=== PATIENT | male | born 1950 | race African-American/Black ===

== ENCOUNTER 2016-08-07 06:32 | Emergency (ER) | payer MEDICARE, MEDICAID ==
[2016-08-07 07:57] LABS: ABSOLUTE BASOPHILS # (AUTO) 0.2 10^3/uL (0.0-0.2); ABSOLUTE EOSINOPHILS # (AUTO) 0.3 10^3/uL (0.0-0.6); ABSOLUTE LYMPHOCYTES (AUTO) 1.2 10^3/uL (0.5-4.7); ABSOLUTE MONOCYTES (AUTO) 0.5 10^3/uL (0.1-1.4); ABSOLUTE NEUT (AUTO) 3.4 10^3/uL (1.7-8.2); BASOPHILS % (AUTO) 3.9 % (0-2); EOSINOPHILS % (AUTO) 4.6 % (0-6); HEMATOCRIT 35.2 % (37.9-51.0); HEMOGLOBIN 11.6 g/dL (13.5-17.0); HGB HCT DIFFERENCE -0.4; LYMPHOCYTES % (AUTO) 21.9 % (13-45); MEAN CORPUSCULAR HEMOGLOBIN 29.9 pg (27.0-33.4); MEAN CORPUSCULAR HGB CONC 32.8 g/dL (32.0-36.0); MEAN CORPUSCULAR VOLUME 91 fl (80-97); RED BLOOD COUNT 3.87 10^6/uL (4.35-5.55); RED CELL DISTRIBUTION WIDTH 15.3 % (11.5-14.0); SEGMENTED NEUTROPHILS % (AUTO) 60.6 % (42-78); WHITE BLOOD COUNT 5.6 10^3/uL (4.0-10.5)
--- NOTE | 2016-08-07 08:04 | EKG REPORT ---
SEVERITY:- ABNORMAL ECG - SINUS RHYTHM LEFT ATRIAL ABNORMALITY IVCD, CONSIDER ATYPICAL LBBB INFERIOR Q WAVES, POSSIBLY DUE OLD INFERIOR [place] : Confirmed by: Gilbert Bradshaw MD 07-Aug-2016 08:04:13
[2016-08-07 08:09] LABS: ALANINE AMINOTRANSFERASE 106 U/L (21-72); ALBUMIN 3.2 g/dL (3.5-5.0); ALKALINE PHOSPHATASE 110 U/L (38-126); ANION GAP 11 (5-19); ASPARTATE AMINO TRANSFERASE 97 U/L (17-59); BILIRUBIN,TOTAL 0.5 mg/dL (0.2-1.3); BLOOD UREA NITROGEN 13 mg/dL (7-20); CALCIUM 8.9 mg/dL (8.4-10.2); CARBON DIOXIDE 24 mmol/L (22-30); CHLORIDE 112 mmol/L (98-107); CREATINE KINASE 83 U/L (55-170); CREATININE RESULT 1.11 mg/dL (0.52-1.25); GLUCOSE 88 mg/dL (75-110); POTASSIUM 4.1 mmol/L (3.6-5.0); SODIUM 146.8 mmol/L (137-145); TOTAL PROTEIN 6.8 g/dL (6.3-8.2)
[2016-08-07 08:21] LABS: CREATINE KINASE MB 1.53 ng/mL (<4.55)
[2016-08-07 08:23] LABS: TROPONIN I 0.075 ng/mL
--- NOTE | 2016-08-07 08:25 | ER Document Report ---
ED Respiratory Problem - General Chief Complaint: Shortness Of Breath Stated Complaint: SHORTNESS OF BREATH Mode of Arrival: Ambulatory Information source: Patient Notes: Patient reports exertional shortness of breath for the past week. Patient states occasionally he will have nausea. Patient denies any chest pain, abdominal pain, back pain, nausea, or vomiting. Patient denies any swelling. 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 TRAVEL OUTSIDE OF THE [place] IN LAST 30 DAYS: No - HPI Patient complains to provider of: CHF, Short of breath. No: Chest pain, Cough, Hurts to breath Onset: Last week Duration: Continuous Initiating Event: Exertion Quality of pain: No pain Pain Level: Denies Context: Hx COPD. denies: Recent long distance trvl, Recent immobilization, Recent surgery, Smoker Short of Breath: Mild Associated symptoms: Extertional dyspnea, Short of breath. denies: Bloody cough , Chest pain/discomfort, Congestion, Cough, Fever, Hyperventilation, Sweaty Similar symptoms previously: Yes Recently seen / treated by doctor: No - Related Data Allergies/Adverse Reactions: No Known Allergies Allergy (Verified 08/07/16 06:53) Past Medical History - General Information source: Patient - Social History Smoking Status: Never Smoker Chew tobacco use (# tins/day): No Frequency of alcohol use: None Drug Abuse: None Occupation: none Lives with: Alone Family History: Reviewed & Not Pertinent - Past Medical History Cardiac Medical History: Reports: Hx Congestive Heart Failure, Hx Coronary Artery Disease, Hx Hypertension Endocrine Medical History: Denies: Hx Diabetes Mellitus Type 1, Hx Diabetes Mellitus Type 2 Renal/ Medical History: Denies: Hx Peritoneal Dialysis Musculoskeltal Medical History: Reports Hx Arthritis - rheumatoid Past Surgical History: Reports: Hx Cardiac Catheterization, Hx Internal Defibrillator, Hx Orthopedic Surgery - Immunizations Immunizations up to date: Yes Hx Diphtheria, Pertussis, Tetanus Vaccination: Yes Review of Systems - Review of Systems Constitutional: No symptoms reported. denies: Fever EENT: No symptoms reported Cardiovascular: denies: Chest pain, Palpitations, Heart racing Respiratory: Short of breath. denies: Cough, Hurts to breathe Gastrointestinal: No symptoms reported. denies: Abdominal pain, Diarrhea, Nausea, Vomiting Genitourinary: No symptoms reported. denies: Dysuria, Flank pain Male Genitourinary: No symptoms reported Musculoskeletal: No symptoms reported. denies: Back pain, Leg swelling, Ankle swelling Skin: No symptoms reported Hematologic/Lymphatic: No symptoms reported Neurological/Psychological: No symptoms reported Physical Exam - Vital signs Vitals: Temp Pulse Resp BP Pulse Ox 98.6 F 90 16 151/124 H 99 08/07/16 06:49 08/07/16 06:49 08/07/16 06:49 08/07/16 06:49 08/07/16 06:49 - General General appearance: Appears well, Alert In distress: None - HEENT Head: Normocephalic Eyes: Normal Conjunctiva: Normal Nasal: Normal Mouth/Lips: Normal Mucous membranes: Normal Neck: Normal, Supple. No: Lymphadenopathy, Subcutaneous emphysema - Respiratory Respiratory status: No respiratory distress. No: Cyanosis, Labored Chest status: Nontender. No: Pain with cough, Pain with deep breathing Breath sounds: Normal Chest palpation: Normal - Cardiovascular Rhythm: Regular Heart sounds: S1 appreciated, S2 appreciated Murmur: No - Abdominal Inspection: Normal Distension: No distension Bowel sounds: Normal Tenderness: Nontender Organomegaly: No organomegaly - Back Back: Normal, Nontender. No: CVA tenderness, Vertebra tenderness - Extremities General upper extremity: Normal inspection, Normal strength. No: Edema General lower extremity: Normal inspection, Edema - 1+, Normal strength - Neurological Neuro grossly intact: Yes Cognition: Normal [place] Coma Scale Eye Opening: Spontaneous Elise Coma Scale Verbal: Oriented Elise Coma Scale Motor: Obeys Commands Elise Coma Scale Total: 15 - Psychological Associated symptoms: Normal affect, Normal mood - Skin Skin Temperature: Warm Skin Moisture: Dry Skin Color: Pale Course - Re-evaluation Re-evalutation: 08/07/16 10:51 Patient's blood pressure improved, patient states that his dyspnea symptoms seem to be improved as well. Patient with large volume of urine at bedside in his urinal. 08/07/16 12:24 Patient walked in emergency department, maintain oxygen saturation 98%, heart rate remained 88-90 bpm. Patient states that he is feeling much better. Discussed plan of care with patient. Patient advised that he should take his Lasix 40 mg every day for the next 4 days which is an increase in his normal dose that he would normally only take 40 mg every other day. Patient verbalized understanding. Patient advised to follow-up with his primary doctor for further evaluation. Patient verbalized understanding and agrees with plan of care. Patient continues without any complaints at this time. Patient denies any dyspnea, chest pain, back pain, or any other symptoms. - Vital Signs Vital signs: Temp Pulse Resp BP Pulse Ox 98.1 F 90 35 H 156/124 H 99 08/07/16 12:55 08/07/16 06:49 08/07/16 13:00 08/07/16 13:00 08/07/16 13:00 - Laboratory Result Diagrams: 08/07/16 07:48 08/07/16 07:48 Laboratory results interpreted by me: 08/07/16 08/07/16 08/07/16 07:48 07:48 07:48 RBC 3.87 L Hgb 11.6 L Hct 35.2 L RDW 15.3 H Plt Count 136 L Basophils % 3.9 H Sodium 146.8 H Chloride 112 H AST 97 H ALT 106 H NT-Pro-B Natriuret Pep 9560 H Albumin 3.2 L Urine Protein Urine Nitrite Ur Leukocyte Esterase Urine Ascorbic Acid 08/07/16 10:00 RBC Hgb Hct RDW Plt Count Basophils % Sodium Chloride AST ALT NT-Pro-B Natriuret Pep Albumin Urine Protein 30 H Urine Nitrite POSITIVE H Ur Leukocyte Esterase TRACE H Urine Ascorbic Acid 40 H - Diagnostic Test Radiology reviewed: Image reviewed, Reports reviewed - EKG Interpretation by Me EKG shows normal: Sinus rhythm [place]/QRS: LBBB, IVCD When compared to previous EKG there are: No significant change Discharge - Discharge Clinical Impression: Shortness of breath, Hx of congestive heart failure Condition: Stable Disposition: HOME, SELF-CARE Instructions: Congestive Heart Failure ([facility]), Lasix, Dyspnea, Nonspecific ([facility]) Additional Instructions: Return immediately for any new or worsening symptoms Followup with your primary care provider, call tomorrow to make a followup appointment Follow-up with your shipping/receiving manager for further evaluation. Increase your dose of Lasix to 40 mg orally each day for the next 4 days, and then resume your normal Lasix dosing. Referrals: FUAD BLEVINS MD [Primary Care Provider] - Follow up tomorrow
[2016-08-07 09:15] LABS: ADD ON TESTING BLD IN LAB ACKNOWLEDGE
[2016-08-07] MEDS ORDERED: FUROSEMIDE INJ/PF 40 MG/4 ML SDV IV ONE (09:20)
[2016-08-07 09:59] LABS: MAGNESIUM 1.8 mg/dL (1.6-2.3)
[2016-08-07 10:34] LABS: APPEARANCE,URINE SLIGHTLY-CLOUDY; BILIRUBIN,URINE NEGATIVE (NEGATIVE); GLUCOSE, URINE NEGATIVE (NEGATIVE); KETONES,URINE NEGATIVE (NEGATIVE); LEUKOCYTE ESTERASE,URINE TRACE (NEGATIVE); NITRITE,URINE POSITIVE (NEGATIVE); PROTEIN,URINE 30 mg/dL (NEGATIVE); URINE SPECIFIC GRAVITY 1.013; UROBILINOGEN,URINE NEGATIVE mg/dL (<2.0)
[2016-08-07 13:02] VITALS: BP 156/124
== END 2016-08-07 13:05 | disposition home or self-care (01) ==
LOC: ER 06:32
DX: I11.0 Hypertensive heart disease with heart failure (principal); I50.9 Heart failure, unspecified; Z79.899 Other long term (current) drug therapy; J44.9 Chronic obstructive pulmonary disease, unspecified; I44.7 Left bundle-branch block, unspecified; R06.02 Shortness of breath; I25.10 Atherosclerotic heart disease of native coronary artery without angina pectoris; E11.9 Type 2 diabetes mellitus without complications; Z95.810 Presence of automatic (implantable) cardiac defibrillator
CPT/HCPCS: 93005; 99285; 96374; 36415; 87086; 82553; 82550; 83735; 84443; 85025; 87088; 80053; 81001; 84484; 87186; 83880; 71020; 93010; J1940

== ENCOUNTER → 2016-08-16 | Outpatient (CLI) | payer MEDICARE, MEDICAID ==
[2016-08-16 09:18] LABS: ABSOLUTE EOSINOPHILS # (AUTO) 0.3 10^3/uL (0.0-0.6); ABSOLUTE LYMPHOCYTES (AUTO) 1.5 10^3/uL (0.5-4.7); ABSOLUTE MONOCYTES (AUTO) 0.5 10^3/uL (0.1-1.4); ABSOLUTE NEUT (AUTO) 2.8 10^3/uL (1.7-8.2); BASOPHILS % (AUTO) 0.2 % (0-2); EOSINOPHILS % (AUTO) 6.2 % (0-6); LYMPHOCYTES % (AUTO) 28.9 % (13-45); MEAN CORPUSCULAR HEMOGLOBIN 30.2 pg (27.0-33.4); MEAN CORPUSCULAR HGB CONC 33.3 g/dL (32.0-36.0); MEAN CORPUSCULAR VOLUME 91 fl (80-97); RED BLOOD COUNT 4.29 10^6/uL (4.35-5.55); RED CELL DISTRIBUTION WIDTH 15.3 % (11.5-14.0); SEGMENTED NEUTROPHILS % (AUTO) 54.7 % (42-78); WHITE BLOOD COUNT 5.1 10^3/uL (4.0-10.5)
[2016-08-16 09:38] LABS: BLOOD UREA NITROGEN 15 mg/dL (7-20); CALCIUM 9.3 mg/dL (8.4-10.2); CREATININE RESULT 1.44 mg/dL (0.52-1.25); GLUCOSE 114 mg/dL (75-110)
[2016-08-16 09:39] LABS: ALANINE AMINOTRANSFERASE 51 U/L (21-72); ALBUMIN 3.7 g/dL (3.5-5.0); ALKALINE PHOSPHATASE 94 U/L (38-126); ANION GAP 14 (5-19); ASPARTATE AMINO TRANSFERASE 38 U/L (17-59); BILIRUBIN,DIRECT 0.4 mg/dL (0.0-0.4); C-REACTIVE PROTEIN 32.2 mg/L (<10.0); CARBON DIOXIDE 26 mmol/L (22-30); CHLORIDE 106 mmol/L (98-107); CREATINE KINASE 111 U/L (55-170); POTASSIUM 4.3 mmol/L (3.6-5.0); SODIUM 146.3 mmol/L (137-145); TOTAL PROTEIN 7.8 g/dL (6.3-8.2); URIC ACID 7.6 mg/dL (3.5-8.5)
[2016-08-16 10:00] LABS: ERYTHROCYTE SEDIMENTATION RATE 47 mm/hr (0-20)
[2016-08-19 06:39] LABS: QUANTIFERON TB ANTIGEN VALUE 0.14 IU/mL (.); QUANTIFERON TB NIL VALUE 0.11 IU/mL (.)
== END ==
LOC: LAB 09:04
PROVIDERS: ATTEND Internal Medicine Rheumatology
DX: M05.79 Rheumatoid arthritis with rheumatoid factor of multiple sites without organ or systems involvement (principal); M15.0 Primary generalized (osteo)arthritis; M79.1 Myalgia; M25.579 Pain in unspecified ankle and joints of unspecified foot; Z79.899 Other long term (current) drug therapy
CPT/HCPCS: 36415; 80053; 82550; 84550; 85025; 85652; 86140; 86480

== ENCOUNTER → 2017-02-12 | Outpatient (CLI) | payer MEDICARE, MEDICAID ==
[2017-02-12 10:21] LABS: ABSOLUTE EOSINOPHILS # (AUTO) 0.3 10^3/uL (0.0-0.6); ABSOLUTE LYMPHOCYTES (AUTO) 1.7 10^3/uL (0.5-4.7); ABSOLUTE MONOCYTES (AUTO) 0.6 10^3/uL (0.1-1.4); ABSOLUTE NEUT (AUTO) 2.6 10^3/uL (1.7-8.2); BASOPHILS % (AUTO) 0.5 % (0-2); EOSINOPHILS % (AUTO) 6.2 % (0-6); HEMATOCRIT 37.9 % (37.9-51.0); HEMOGLOBIN 12.6 g/dL (13.5-17.0); HGB HCT DIFFERENCE -0.1; MEAN CORPUSCULAR HEMOGLOBIN 31.2 pg (27.0-33.4); MEAN CORPUSCULAR HGB CONC 33.3 g/dL (32.0-36.0); MEAN CORPUSCULAR VOLUME 94 fl (80-97); MONOCYTES % (AUTO) 11.5 % (3-13); RED BLOOD COUNT 4.05 10^6/uL (4.35-5.55); RED CELL DISTRIBUTION WIDTH 16.5 % (11.5-14.0); SEGMENTED NEUTROPHILS % (AUTO) 49.8 % (42-78); WHITE BLOOD COUNT 5.2 10^3/uL (4.0-10.5)
[2017-02-12 10:47] LABS: ALANINE AMINOTRANSFERASE 27 U/L (21-72); ALBUMIN 3.5 g/dL (3.5-5.0); ALKALINE PHOSPHATASE 72 U/L (38-126); ANION GAP 8 (5-19); ASPARTATE AMINO TRANSFERASE 27 U/L (17-59); BILIRUBIN,DIRECT 0.4 mg/dL (0.0-0.4); BILIRUBIN,TOTAL 0.5 mg/dL (0.2-1.3); BLOOD UREA NITROGEN 15 mg/dL (7-20); C-REACTIVE PROTEIN 28.3 mg/L (<10.0); CALCIUM 9.1 mg/dL (8.4-10.2); CARBON DIOXIDE 28 mmol/L (22-30); CHLORIDE 107 mmol/L (98-107); CREATINE KINASE 83 U/L (55-170); CREATININE RESULT 1.17 mg/dL (0.52-1.25); GLUCOSE 87 mg/dL (75-110); POTASSIUM 4.5 mmol/L (3.6-5.0); SODIUM 143.4 mmol/L (137-145); TOTAL PROTEIN 7.4 g/dL (6.3-8.2); URIC ACID 5.2 mg/dL (3.5-8.5)
[2017-02-12 10:58] LABS: ERYTHROCYTE SEDIMENTATION RATE 67 mm/hr (0-20)
== END ==
LOC: LAB 10:08
PROVIDERS: ATTEND Internal Medicine Rheumatology
DX: M75.00 Adhesive capsulitis of unspecified shoulder (principal); M05.79 Rheumatoid arthritis with rheumatoid factor of multiple sites without organ or systems involvement; M15.0 Primary generalized (osteo)arthritis; M10.09 Idiopathic gout, multiple sites; I10 Essential (primary) hypertension; I49.9 Cardiac arrhythmia, unspecified; E55.9 Vitamin D deficiency, unspecified; D64.89 Other specified anemias; M77.40 Metatarsalgia, unspecified foot
CPT/HCPCS: 36415; 80053; 82550; 84550; 85025; 85652; 86140

== ENCOUNTER 2018-02-25 12:14 | Emergency (ER) | payer MEDICARE, MEDICAID ==
[2018-02-25] MEDS ORDERED: PREDNISONE 20 MG TABLET PO ONE (13:36)
--- NOTE | 2018-02-25 13:56 | ER Document Report ---
ED General - General Chief Complaint: Pain All Over Stated Complaint: BODY PAIN Time Seen by Provider: 02/25/18 12:48 Notes: Patient is a 67-year-old male with rheumatoid arthritis that presents to the emergency department for chief complaint of joint pain. Patient reports he has been having multiple joints causing him pain over the last several months, but worse in the last week. He describes the pain as a 6 out of 10, worse in the morning, and joint stiffness particularly in his hands in the morning. He states his been off of medication for rheumatoid arthritis for almost 2 years, and has not been back to see his traffic expert, he states this is because he no longer drives, and has not requested to get a ride to follow-up. He previously was on leflunomide. Overall he states that his hands are bothering him the most, but has joint pains in his wrists, elbows, shoulders knees and ankles. He denies taking any medication to help relieve his symptoms. He also denies noting any fevers, chills, night sweats, chest pain, nausea, vomiting or shortness of breath. Past Medical History: Rheumatoid arthritis, hypertension, CHF Past Surgical History: AICD placement Social History: Denies current tobacco, alcohol or drug use Family History: Reviewed and noncontributory for presenting illness Allergies: Reviewed, see documented allergy list. REVIEW OF SYSTEMS: Unless otherwise stated in this report the patient's positive and negative responses for review of systems for constitutional, eyes, ENT, cardiovascular, respiratory, gastrointestinal, neurological, genitourinary, musculoskeletal, and integumentary systems and related systems to the presenting problem are either as stated in the HPI or were not pertinent or were negative for the symptoms and/or complaints related to the presenting medical problem. PHYSICAL EXAMINATION: Vital signs reviewed, nursing noted reviewed. GENERAL: Elderly male, no acute or apparent distress HEAD: Atraumatic, normocephalic. EYES: Eyes appear normal, extraocular movements intact, sclera anicteric, conjunctiva are normal. ENT: nares patent, oropharynx clear without exudates. Moist mucous membranes. NECK: Normal range of motion, supple without lymphadenopathy LUNGS: Breath sounds clear to auscultation bilaterally and equal. No wheezes rales or rhonchi. HEART: Regular rate and rhythm without murmurs ABDOMEN: Soft, nontender, normoactive bowel sounds. No rebound, guarding, or rigidity. No masses appreciated. 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 There is no warmth to the major joints, but there was tenderness with palpation on most joints including the ankles, knees, elbows, wrists and shoulders bilaterally. Range of motion overall of the extremities was good, without significant limitation. NEUROLOGICAL: No focal neurological deficits. Moves all extremities spontaneously Motor and sensory grossly intact on exam. PSYCH: Normal mood, normal affect. SKIN: Warm, Dry, normal turgor, no rashes or lesions noted on exposed skin TRAVEL OUTSIDE OF THE [place] IN LAST 30 DAYS: No - Related Data Allergies/Adverse Reactions: No Known Allergies Allergy (Verified 08/07/16 06:53) Past Medical History - Social History Smoking Status: Never Smoker Chew tobacco use (# tins/day): No Frequency of alcohol use: None Drug Abuse: None Family History: Reviewed & Not Pertinent Patient has suicidal ideation: No Patient has homicidal ideation: No - Past Medical History Cardiac Medical History: Reports: Hx Congestive Heart Failure, Hx Coronary Artery Disease, Hx Hypertension Endocrine Medical History: Denies: Hx Diabetes Mellitus Type 1, Hx Diabetes Mellitus Type 2 Renal/ Medical History: Denies: Hx Peritoneal Dialysis Musculoskeletal Medical History: Reports Hx Arthritis - rheumatoid Past Surgical History: Reports: Hx Cardiac Catheterization, Hx Cardiac Surgery - pacemaker placement, Hx Internal Defibrillator, Hx Orthopedic Surgery - Immunizations Immunizations up to date: Yes Hx Diphtheria, Pertussis, Tetanus Vaccination: Yes Physical Exam - Vital signs Vitals: Temp Pulse Resp BP Pulse Ox 97.9 F 69 18 104/75 96 02/25/18 13:05 02/25/18 13:05 02/25/18 13:05 02/25/18 13:05 02/25/18 13:05 Course - Re-evaluation Re-evalutation: Patient seen and examined vital signs reviewed. Patient was evaluated and treated as appropriate for the patient's presenting symptoms and complaint, with consideration of any critical or life threatening conditions that may be associated with their obtained history and exam as noted above. Patient was treated with prednisone The patient was re-evaluated and was stable Evaluation was most consistent with acute rheumatoid arthritis flare, I will treat the patient with prednisone comments and discussed with him that he needs a follow-up with a primary care or his prior traffic expert, as his rheumatoid arthritis will continue to get worse if not treated appropriately, he was previously on leflunomide, but has not been on it for a few years. I will give him prednisone for 5 days, to help his acute flare and to calm down his inflammation, and then have him follow-up with his primary care. Patient was agreeable to this plan of care. Plan of care was discussed with the patient at this point, after careful consideration I feel that that patient can be discharged from the emergency department, the patient was educated treatments and reasons to return to the emergency department based on their presumed diagnosis as noted above, they were advised to followup with a primary care physician in 2-3 days. Patient was agreeable to plan of care. *Note is created using voice recognition software and may contain spelling, syntax or grammatical errors. - Vital Signs Vital signs: Temp Pulse Resp BP Pulse Ox 97.9 F 69 18 104/75 96 02/25/18 13:05 02/25/18 13:05 02/25/18 13:05 02/25/18 13:05 02/25/18 13:05 Discharge - Discharge Clinical Impression: Rheumatoid arthritis flare Condition: Stable Disposition: HOME, SELF-CARE Instructions: Rheumatoid Arthritis ([facility]) Additional Instructions: Please return to the emergency department if you have any worsening, or concern of your symptoms. Please return to the emergency department if you develop chest pain, difficulty breathing, severe abdominal pain, or ongoing vomiting. Please follow-up with your primary care physician in 2-3 days and any other recommended physicians. If prescribed, take all medications as directed. If you have any questions or concerns do not hesitate to return the emergency department for evaluation. Prescriptions: Prednisone 50 mg PO DAILY #5 tablet Referrals: FUAD BLEVINS MD [Primary Care Provider] - Follow up in 3-5 days
[2018-02-25 15:28] VITALS: BP 104/75
== END 2018-02-25 14:45 | disposition home or self-care (01) ==
LOC: ER 12:14
DX: M06.9 Rheumatoid arthritis, unspecified (principal); T39.4X6A Underdosing of antirheumatics, not elsewhere classified, initial encounter; Z91.128 Patient's intentional underdosing of medication regimen for other reason; Z91.14 Patient's other noncompliance with medication regimen; I10 Essential (primary) hypertension; I25.10 Atherosclerotic heart disease of native coronary artery without angina pectoris; Z95.810 Presence of automatic (implantable) cardiac defibrillator
CPT/HCPCS: 99283; A9270; J7512

== ENCOUNTER 2019-06-20 15:25 | Inpatient (IN) | payer MEDICARE, MEDICAID ==
[2019-06-20 16:20] LABS: ABSOLUTE BASOPHILS # (AUTO) 0.1 10^3/uL (0.0-0.2); ABSOLUTE EOSINOPHILS # (AUTO) 0.1 10^3/uL (0.0-0.6); ABSOLUTE LYMPHOCYTES (AUTO) 2.6 10^3/uL (0.5-4.7); ABSOLUTE MONOCYTES (AUTO) 0.3 10^3/uL (0.1-1.4); ABSOLUTE NEUT (AUTO) 2.6 10^3/uL (1.7-8.2); BASOPHILS % (AUTO) 2.3 % (0-2); EOSINOPHILS % (AUTO) 2.2 % (0-6); HEMATOCRIT 40.3 % (37.9-51.0); HEMOGLOBIN 12.9 g/dL (13.5-17.0); LYMPHOCYTES % (AUTO) 44.9 % (13-45); MEAN CORPUSCULAR HEMOGLOBIN 28.2 pg (27.0-33.4); MEAN CORPUSCULAR VOLUME 88 fl (80-97); MONOCYTES % (AUTO) 5.1 % (3-13); PLATELET COUNT 119 10^3/uL (150-450); RED BLOOD COUNT 4.56 10^6/uL (4.35-5.55); RED CELL DISTRIBUTION WIDTH 23.9 % (11.5-14.0); SEGMENTED NEUTROPHILS % (AUTO) 45.5 % (42-78); TOTAL CELLS COUNTED % (AUTO) 100 %; WHITE BLOOD COUNT 5.8 10^3/uL (4.0-10.5)
--- NOTE | 2019-06-20 16:54 | RADIOLOGY REPORT (SQ) ---
EXAM DESCRIPTION: CHEST SINGLE VIEW COMPLETED DATE/TIME: 06/20/2019 4:43 pm REASON FOR STUDY: shortness of breath COMPARISON: PA and lateral views of the chest from 08/07/2016 EXAM PARAMETERS: NUMBER OF VIEWS: One view. TECHNIQUE: An AP view of the chest was obtained. RADIATION DOSE: NA LIMITATIONS: None. FINDINGS: LUNGS AND PLEURA: The costophrenic sulci are blunted. There is no consolidation or pneumo thorax MEDIASTINUM AND HILAR STRUCTURES: No mediastinal or hilar contour abnormality. HEART AND VASCULAR STRUCTURES: Stable cardiomegaly. BONES: Osteoarthrosis of the right glenohumeral joint. HARDWARE: Right subclavian vein approach ICD. OTHER: No other finding. IMPRESSION: Cardiomegaly and trace bilateral pleural effusions without evidence pulmonary edema. TECHNICAL DOCUMENTATION: JOB ID: [id number] [employer]- All Rights Reserved Reading location - IP/workstation name: [email or web address]
[2019-06-20 17:14] LABS: VENOUS BLOOD BASE EXCESS -6.5 mmol/L; VENOUS BLOOD HCO3 19.4 mmol/L (20-32); VENOUS BLOOD PCO2 39.7 mmHg (35-63); VENOUS BLOOD PH 7.31 (7.30-7.42)
[2019-06-20 17:17] LABS: ALBUMIN 2.6 g/dL (3.5-5.0); ALKALINE PHOSPHATASE 277 U/L (38-126); ANION GAP 13 (5-19); ASPARTATE AMINO TRANSFERASE 41 U/L (17-59); BILIRUBIN,DIRECT 0.7 mg/dL (0.0-0.4); BILIRUBIN,TOTAL 1.3 mg/dL (0.2-1.3); BLOOD UREA NITROGEN 31 mg/dL (7-20); CALCIUM 8.5 mg/dL (8.4-10.2); CARBON DIOXIDE 20 mmol/L (22-30); CHLORIDE 106 mmol/L (98-107); CREATINE KINASE 41 U/L (55-170); POTASSIUM 4.3 mmol/L (3.6-5.0); TOTAL PROTEIN 6.5 g/dL (6.3-8.2)
[2019-06-20 17:25] LABS: GLUCOSE 67 mg/dL (75-110)
[2019-06-20 17:38] LABS: CREATINE KINASE MB 0.77 ng/mL (<4.55); TROPONIN I 0.032 ng/mL
[2019-06-20 18:32] LABS: INTERNATIONAL RATION (INR) 1.37; PROTHROMBIN TIME 16.9 SEC (11.4-15.4)
--- NOTE | 2019-06-20 21:52 | ER Document Report ---
ED General - General Chief Complaint: General Weakness Stated Complaint: WEAKNESS Time Seen by Provider: 06/20/19 21:09 Primary Care Provider: FUAD BLEVINS MD [Primary Care Provider] - Follow up as needed TRAVEL OUTSIDE OF THE [place] IN LAST 30 DAYS: No - HPI Notes: Mr. Guido is a 69-year-old male from Dr. Blevins with a history of chronic congestive heart failure with low ejection fraction and AICD/pacemaker in situ presenting with a chief complaint of increasing shortness of breath this afternoon. No associated chest pain. No firing of defibrillator. EMS did a lactate in the field and this was elevated around 4.7. Patient was not febrile. He does not use any oxygen at home. EMS placed him on supplemental oxygen and gave him 1 L of IV normal saline during transport. He felt better with administration of oxygen and has remained stable since arrival in the emergency department. Patient additionally has a history of rheumatoid arthritis. - Related Data Allergies/Adverse Reactions: No Known Allergies Allergy (Verified 08/07/16 06:53) Home Medications: betapace, valsartan, folic acid Past Medical History - General Information source: Patient, Emergency Med Personnel - Social History Smoking Status: Never Smoker Chew tobacco use (# tins/day): No Frequency of alcohol use: None Drug Abuse: None Family History: Reviewed & Not Pertinent Patient has suicidal ideation: No Patient has homicidal ideation: No - Past Medical History Cardiac Medical History: Reports: Hx Congestive Heart Failure, Hx Coronary Artery Disease, Hx Hypertension Endocrine Medical History: Denies: Hx Diabetes Mellitus Type 1, Hx Diabetes Mellitus Type 2 Renal/ Medical History: Denies: Hx Peritoneal Dialysis Musculoskeletal Medical History: Reports Hx Arthritis - rheumatoid Past Surgical History: Reports: Hx Cardiac Catheterization, Hx Cardiac Surgery - pacemaker placement, Hx Internal Defibrillator, Hx Orthopedic Surgery - Immunizations Immunizations up to date: Yes Hx Diphtheria, Pertussis, Tetanus Vaccination: Yes Review of Systems - Review of Systems Notes: Constitutional: Negative for fever. HENT: Negative for sore throat. Eyes: Negative for visual changes. Cardiovascular: As per HPI. Respiratory: As per HPI. Gastrointestinal: Negative for abdominal pain, vomiting or diarrhea. Genitourinary: Negative for dysuria. Musculoskeletal: Chronic joint pain related to RA. Skin: Negative for rash. Neurological: Negative for headaches, weakness or numbness. 10 point ROS negative except as marked above and in HPI. Physical Exam - Vital signs Vitals: Resp 16 06/20/19 15:32 - Notes Notes: GENERAL: Somewhat chronically ill-appearing elderly male in no acute distress. SKIN: Good turgor no rashes. HEAD: Normocephalic atraumatic. EYES: PERRLA. EOMI. Conjunctivae and sclerae clear. EARS: CANALS AND TMS CLEAR. NOSE: CLEAR. MOUTH: Moist mucosa. Poor dentition. No stridor or edema. No drooling. NECK: Supple. No masses or thyromegaly. No adenopathy. Carotids 2+ without bruits. No JVD. BACK: Symmetrical without tenderness. CHEST: AICD/pacemaker present left anterior chest wall. Respirations unlabored. Patient is 98% O2 saturation on 2 L nasal O2 by pulse oximetry. Breath sounds symmetrical with scattered rales at both bases.. HEART: Regular rhythm. No murmur gallop or rub. ABDOMEN: Soft nontender without masses, organomegaly or rebound. Bowel sounds normally active. No bruits. GENITALIA: Deferred. EXTREMITIES: Trace bilateral pretibial edema. No calf tenderness. Cap refill less than 1.5 seconds. Dorsalis pedis and posterior tibial pulses 3+ and symmetrical. NEUROLOGICAL: GCS 15. Alert and oriented x3. Fluent speech. Cranial nerves II through XII intact. Sensorimotor and cerebellar normal. Normal tone. PSYCHIATRIC: Appropriate affect. Course - Re-evaluation Re-evalutation: 06/20/19 21:51 Initial troponin is normal. BNP is pending. He has no elevation of his white count and no fever here. He remains hemodynamically stable. Clinically it looks like he may have had exacerbation of CHF requiring oxygen. Elevation of his lactate was probably due to his respiratory distress and decreased perfusion associated with CHF exacerbation. We will repeat troponin and get a BNP level on him. Anticipate admission for adjustment of medications. 06/20/19 23:36 Clinically I do not think this man is septic. His troponin is normal and his BNP level is substantially elevated. I think he has some decompensation of his CHF. He is remaining in a paced rhythm and is very comfortable at this time on 2 L of nasal O2. I will give him some IV Lasix and I think he should be admitted to telemetry. Case was discussed with Dr. Simpson on-call for his primary care physician Dr. Blevins and Dr. Simpson has requested that we admit him to Dr. Blevins's service on telemetry. - Vital Signs Vital signs: Temp Pulse Resp BP Pulse Ox 97.3 F 19 115/98 H 100 06/20/19 19:30 06/20/19 22:01 06/20/19 22:01 06/20/19 22:01 - Laboratory Result Diagrams: 06/20/19 15:00 06/20/19 16:32 Laboratory results interpreted by me: 06/20/19 06/20/19 06/20/19 15:00 15:32 15:57 Hgb 12.9 L RDW 23.9 H Plt Count 119 L Baso % (Auto) 2.3 H PT 16.9 H VBG HCO3 19.4 L Carbon Dioxide BUN Creatinine Est GFR (MDRD) Non-Af Glucose Lactic Acid Direct Bilirubin Alkaline Phosphatase Creatine Kinase NT-Pro-B Natriuret Pep Albumin 06/20/19 06/20/19 06/20/19 15:57 16:32 16:32 Hgb RDW Plt Count Baso % (Auto) PT VBG HCO3 Carbon Dioxide 20 L BUN 31 H Creatinine 1.35 H Est GFR (MDRD) Non-Af 53 L Glucose 67 L Lactic Acid 4.7 H Direct Bilirubin 0.7 H Alkaline Phosphatase 277 H Creatine Kinase 41 L NT-Pro-B Natriuret Pep 66811 H Albumin 2.6 L 06/20/19 06/20/19 19:30 23:05 Hgb RDW Plt Count Baso % (Auto) PT VBG HCO3 Carbon Dioxide BUN Creatinine Est GFR (MDRD) Non-Af Glucose Lactic Acid 2.4 H 2.5 H Direct Bilirubin Alkaline Phosphatase Creatine Kinase NT-Pro-B Natriuret Pep Albumin - EKG Interpretation by Me Additional EKG results interpreted by me: 06/20/19 21:50 Twelve-lead EKG from 1623 hrs. today reviewed by me contemporaneously demonstrating an atrial sensed ventricular paced rhythm at a rate of 62. Discharge - Discharge Clinical Impression: Congestive heart failure, Shortness of breath Condition: Good Disposition: ADMITTED INPATIENT Admitting Provider: Tayo Unit Admitted: Telemetry Referrals: FUAD BLEVINS MD [Primary Care Provider] - Follow up as needed
[2019-06-20] MEDS ORDERED: IPRATROPIUM/ALBUTEROL 0.5-2.5 MG/3 ML AMPUL NEB PRN (23:33)
[2019-06-20] MEDS ORDERED: FUROSEMIDE INJ/PF 20 MG/2 ML SDV IV ONE (23:34)
[2019-06-21] MEDS ORDERED: CEFTRIAXONE 1 GM/D5W RTU 1 GM/50 ML RTUPB IV ONE (01:00)
[2019-06-21 02:12] LABS: ANION GAP 8 (5-19); BLOOD UREA NITROGEN 31 mg/dL (7-20); CALCIUM 8.3 mg/dL (8.4-10.2); CARBON DIOXIDE 22 mmol/L (22-30); CHLORIDE 109 mmol/L (98-107); GLUCOSE 94 mg/dL (75-110); POTASSIUM 4.2 mmol/L (3.6-5.0)
[2019-06-21] MEDS ORDERED: INFLUENZA QUAD (6MOS+) 2019-20 VAC 0.5 ML SYR IM ONE (03:30)
[2019-06-21] MEDS: PANTOPRAZOLE SODIUM 40 MG TABLET.DR PO SCH (05:45)
[2019-06-21] MEDS ORDERED: FUROSEMIDE INJ/PF 20 MG/2 ML SDV IV SCH (06:00)
[2019-06-21 06:50] LABS: HEMATOCRIT 36.8 % (37.9-51.0); HEMOGLOBIN 11.8 g/dL (13.5-17.0); MEAN CORPUSCULAR HGB CONC 32.1 g/dL (32.0-36.0); MEAN CORPUSCULAR VOLUME 87 fl (80-97); PLATELET COUNT 102 10^3/uL (150-450); RED BLOOD COUNT 4.23 10^6/uL (4.35-5.55); RED CELL DISTRIBUTION WIDTH 23.4 % (11.5-14.0); WHITE BLOOD COUNT 5.1 10^3/uL (4.0-10.5)
[2019-06-21 06:52] LABS: CREATINE KINASE MB 1.25 ng/mL (<4.55); TROPONIN I 0.032 ng/mL
[2019-06-21 07:52] LABS: ABSOLUTE LYMPHOCYTES# (MANUAL) 1.4 10^3/uL (0.5-4.7); ABSOLUTE MONOCYTES # (MANUAL) 0.1 10^3/uL (0.1-1.4); BASOPHILS % (MANUAL) 1 % (0-2); EOSINOPHILS % (MANUAL) 1 % (0-6); LYMPHOCYTES % (MANUAL) 28 % (13-45); MONOCYTES % (MANUAL) 2 % (3-13); SEGMENTED NEUTROPHILS % (MAN) 68 % (42-78); TOTAL CELLS COUNTED 100
[2019-06-21 07:53] LABS: ANISOCYTOSIS 3+; PLATELET COMMENT DECREASED; POLYCHROMASIA SLIGHT
[2019-06-21] MEDS: ENOXAPARIN SODIUM INJ 40 MG/0.4 ML DISP.SYRIN SUBCUT SCH (09:43)
--- NOTE | 2019-06-21 11:45 | Progress Note ---
Provider Note Provider Note: Patient seen and examined. Patient felt to have severe LV systolic dysfunction. Chest x-ray shows ICD in place with 3 leads including a LV lead. EKG showed a sensed V paced rhythm. Patient noted to have mild CHF overall. At this point, patient's medications are being adjusted. A 2D echocardiogram has been ordered. An EKG has been ordered. We will continue to follow. Full report to follow.
[2019-06-21] MEDS: DIGOXIN 0.125 MG TABLET PO SCH (12:06)
--- NOTE | 2019-06-21 12:16 | PDOC H&P ---
History of Present Illness Admission Date/PCP: 06/21/19 00:00 FUAD BLEVINS MD Patient complains of: Generalized weakness and shortness of the breath History of Present Illness: STANLEY TLOEDO is a 69 year old male This is a 69-year-old patient of Dr. Blevins with a history of the chronic congestive heart failure with the very low EF AICD placement currently see a Dr. Simpson in [place] came to the emergency department with the complaining of for increasing shortness of the breath since last 1 days Patient's denied any chest pain denied any defibrillator issues Patient's had a history of rheumatoid arthritis but currently see her Dr. 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 acid was 4.7 and ER physician repeat the lactic acid is coming down to 1.5 and most likely not related to any sepsis Patient's white count is normal patient having no fever no chills Patient's most likely consistent with acute congestive heart failure with a very low EF When I saw the patient on the telemetry bed patient's denied any chest pain still have a short of breath requiring oxygen Patients does not have a no leg swelling Past Medical History Cardiac Medical History: Reports: Congestive Heart Failure, Coronary Artery Disease, Hypertension Endocrine Medical History: Denies: Diabetes Mellitus Type 1, Diabetes Mellitus Type 2 Musculoskeltal Medical History: Reports: Arthritis - rheumatoid Past Surgical History Past Surgical History: Reports: Cardiac Catheterization, Internal Defibrillator, Orthopedic Surgery Social History Information Source: Patient Smoking Status: Never Smoker Electronic Cigarette use?: No Frequency of Alcohol Use: Rare Hx Recreational Drug Use: No Drugs: None Hx Prescription Drug Abuse: No Family History Family History: Reviewed & Not Pertinent Parental Family History Reviewed: Yes Children Family History Reviewed: Yes Sibling(s) Family History Reviewed.: Yes Medication/Allergy Home Medications: Folic Acid 1 mg PO DAILY 04/12/15 Sotalol HCl [Sotalol] 80 mg PO BID 04/12/15 Aspirin [Ecotrin 81 mg EC Tablet] 81 mg PO DAILY 06/21/19 Sacubitril/Valsartan [Entresto 49 mg/51 mg Tablet] 1 tab PO BID 06/21/19 Allergies/Adverse Reactions: No Known Allergies Allergy (Verified 08/07/16 06:53) Review of Systems Constitutional: PRESENT: weakness. ABSENT: chills, fever(s), headache(s), weight gain, weight loss Eyes: ABSENT: visual disturbances Ears: ABSENT: hearing changes Cardiovascular: PRESENT: dyspnea on exertion. ABSENT: chest pain, edema, orthropnea, palpitations Respiratory: ABSENT: cough, hemoptysis Gastrointestinal: ABSENT: abdominal pain, constipation, diarrhea, hematemesis, hematochezia, nausea, vomiting Genitourinary: ABSENT: dysuria, hematuria Musculoskeletal: ABSENT: joint swelling Integumentary: ABSENT: rash, wounds Neurological: ABSENT: abnormal gait, abnormal speech, confusion, dizziness, focal weakness, syncope Psychiatric: ABSENT: anxiety, depression, homidical ideation, suicidal ideation Endocrine: ABSENT: cold intolerance, heat intolerance, menstrual abnormalities, polydipsia, polyuria Hematologic/Lymphatic: ABSENT: easy bleeding, easy bruising, lymphadenopathy Physical Exam Vital Signs: Temp Pulse Resp BP Pulse Ox 98.7 F 80 20 100/77 99 06/21/19 07:26 06/21/19 07:26 06/21/19 07:26 06/21/19 07:26 06/21/19 07:26 Intake & Output 06/20/19 06/21/19 06/22/19 06:59 06:59 06:59 Intake Total 50 Balance 50 Weight 79.7 kg General appearance: PRESENT: no acute distress, thin Head exam: PRESENT: atraumatic, normocephalic Eye exam: PRESENT: conjunctiva pink, EOMI, PERRLA. ABSENT: scleral icterus Ear exam: PRESENT: normal external ear exam Mouth exam: PRESENT: moist, tongue midline Neck exam: PRESENT: full ROM. ABSENT: carotid bruit, JVD, lymphadenopathy, thyromegaly Respiratory exam: PRESENT: decreased breath sounds Cardiovascular exam: PRESENT: RRR. ABSENT: diastolic murmur, rubs, systolic murmur Pulses: PRESENT: normal dorsalis pedis pul, +2 pedal pulses bilateral Vascular exam: PRESENT: normal capillary refill GI/Abdominal exam: PRESENT: normal bowel sounds, soft. ABSENT: distended, guarding, mass, organolmegaly, rebound, tenderness Rectal exam: PRESENT: deferred Musculoskeletal exam: PRESENT: ambulatory Neurological exam: PRESENT: alert, awake, oriented to person, oriented to place, oriented to time, oriented to situation, CN II-XII grossly intact. ABSENT: motor sensory deficit Psychiatric exam: PRESENT: appropriate affect, normal mood. ABSENT: homicidal ideation, suicidal ideation Skin exam: PRESENT: dry, intact, warm. ABSENT: cyanosis, rash Results Laboratory Results: 06/21/19 06:09 06/21/19 01:24 06/20/19 06/20/19 06/20/19 15:00 15:00 15:57 WBC 5.8 RBC 4.56 Hgb 12.9 L Hct 40.3 MCV 88 MCH 28.2 MCHC 32.0 RDW 23.9 H Plt Count 119 L Seg Neutrophils % 45.5 VBG pH 7.31 VBG pCO2 39.7 VBG HCO3 19.4 L VBG Base Excess -6.5 Sodium Cancelled Potassium Cancelled Chloride Cancelled Carbon Dioxide Cancelled Anion Gap Cancelled BUN Cancelled Creatinine Cancelled Est GFR ( Amer) Cancelled Est GFR (Non-Af Amer) Cancelled Glucose Cancelled Lactic Acid Calcium Cancelled Total Bilirubin Cancelled AST Cancelled Alkaline Phosphatase Cancelled Total Protein Cancelled Albumin Cancelled 06/20/19 06/20/19 06/20/19 15:57 16:32 19:30 WBC RBC Hgb Hct MCV MCH MCHC RDW Plt Count Seg Neutrophils % VBG pH VBG pCO2 VBG HCO3 VBG Base Excess Sodium 138.8 Potassium 4.3 Chloride 106 Carbon Dioxide 20 L Anion Gap 13 BUN 31 H Creatinine 1.35 H Est GFR ( Amer) > 60 Est GFR (Non-Af Amer) Glucose 67 L Lactic Acid 4.7 H 2.4 H Calcium 8.5 Total Bilirubin 1.3 AST 41 Alkaline Phosphatase 277 H Total Protein 6.5 Albumin 2.6 L 06/20/19 06/21/19 06/21/19 23:05 00:24 01:24 WBC RBC Hgb Hct MCV MCH MCHC RDW Plt Count Seg Neutrophils % VBG pH VBG pCO2 VBG HCO3 VBG Base Excess Sodium Cancelled 139.4 Potassium Cancelled 4.2 Chloride Cancelled 109 H Carbon Dioxide Cancelled 22 Anion Gap Cancelled 8 BUN Cancelled 31 H Creatinine Cancelled 1.36 H Est GFR ( Amer) Cancelled > 60 Est GFR (Non-Af Amer) Cancelled Glucose Cancelled 94 Lactic Acid 2.5 H Calcium Cancelled 8.3 L Total Bilirubin AST Alkaline Phosphatase Total Protein Albumin 06/21/19 06:09 WBC 5.1 RBC 4.23 L Hgb 11.8 L Hct 36.8 L MCV 87 MCH 28.0 MCHC 32.1 RDW 23.4 H Plt Count 102 L Seg Neutrophils % Not Reportable VBG pH VBG pCO2 VBG HCO3 VBG Base Excess Sodium Potassium Chloride Carbon Dioxide Anion Gap BUN Creatinine Est GFR ( Amer) Est GFR (Non-Af Amer) Glucose Lactic Acid Calcium Total Bilirubin AST Alkaline Phosphatase Total Protein Albumin 06/20/19 06/20/19 06/20/19 15:00 15:00 16:32 Creatine Kinase Cancelled 41 L CK-MB (CK-2) Cancelled Troponin I Cancelled NT-Pro-B Natriuret Pep 06/20/19 06/20/19 06/21/19 16:32 16:32 06:09 Creatine Kinase 51 L CK-MB (CK-2) 0.77 Troponin I 0.032 NT-Pro-B Natriuret Pep 46500 H 06/21/19 06/21/19 06:09 11:23 Creatine Kinase 60 CK-MB (CK-2) 1.25 Troponin I 0.032 NT-Pro-B Natriuret Pep Impressions: Chest X-Ray 06/20/19 00:00 IMPRESSION: Cardiomegaly and trace bilateral pleural effusions without evidence pulmonary edema. Assessment & Plan - Diagnosis (1) Shortness of breath Is this a current diagnosis for this admission?: Yes Plan: Related to the acute congestive heart failure we will start the patient's and IV Lasix consult the cardiology (2) Acute systolic heart failure Is this a current diagnosis for this admission?: Yes Plan: Patient EF is definitely very low We will get the echocardiograms Continues IV Lasix Chest x-ray consistent with the congestive heart failure NT BNP was elevated (4) Cardiomyopathy Qualifiers: Cardiomyopathy type: ischemic Qualified Code(s): I25.5 - Ischemic cardiomyopathy Is this a current diagnosis for this admission?: Yes Plan: Post AICD placement (5) Rheumatoid aortitis Is this a current diagnosis for this admission?: Yes Plan: Is currently see Dr. Bloom as outpatient (6) Elevated lactic acid level Is this a current diagnosis for this admission?: Yes Plan: Since does not like any septic We will get the blood culture urine culture Will cover with IV antibiotic until the cultures back - Time Time Spent: 30 to 50 Minutes Medications reviewed and adjusted accordingly: Yes Anticipated discharge: Home with Homehealth Within: Other - Inpatient Certification Based on my medical assessment, after consideration of the patient's comorbidities, presenting symptoms, or acuity I expect that the services needed warrant INPATIENT care.: Yes I certify that my determination is in accordance with my understanding of Medicare's requirements for reasonable and necessary INPATIENT services [42 CFR 412.3e].: Yes Medical Necessity: Significant Comorbidiites Make Outpatient Treatment Too Risky, Need Close Monitoring Due to Risk of Patient Decompensation, Need For Continuous Telemetry Monitoring 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
[2019-06-21 12:20] LABS: CREATINE KINASE MB 1.47 ng/mL (<4.55); TROPONIN I 0.034 ng/mL
[2019-06-21] MEDS: FUROSEMIDE INJ/PF 20 MG/2 ML SDV IV SCH ×2 (14:45→21:46)
--- NOTE | 2019-06-21 16:25 | RADIOLOGY REPORT (SQ) ---
EXAM DESCRIPTION: NM LUNG VENT/PERF SCAN COMPLETED DATE/TIME: 06/21/2019 4:12 pm REASON FOR STUDY: sob/hypoxia COMPARISON: Chest x-ray dated 06/20/2019. RADIONUCLIDE AND DOSE: 5.34 millicuries TC-99m MAA Intravenous 31.6 millicuries TC-99m DTPA Inhaled aerosol TECHNIQUE: A single AP view of the lungs acquired post ventilation of DTPA aerosol. Eight matching views of the lungs acquired following injection of MAA. LIMITATIONS: Unable to obtain adequate ventilation images. FINDINGS: VENTILATION: Limited study with inadequate ventilation images. PERFUSION: Perfusion images with normal homogenous activity and no wedge-shaped or segmental defects. No ventilation-perfusion mismatches. OTHER: No other significant finding. IMPRESSION: NORMAL PERFUSION LUNG SCAN. NEGATIVE FOR PULMONARY EMBOLI. TECHNICAL DOCUMENTATION: JOB ID: [id number] [employer]- All Rights Reserved Reading location - IP/workstation name: [email or web address]
[2019-06-21 17:32] LABS: CREATINE KINASE MB 1.34 ng/mL (<4.55); TROPONIN I 0.029 ng/mL
[2019-06-21] MEDS: SACUBITRIL/VALSARTAN 49 MG/51 MG TABLET PO SCH (18:02)
[2019-06-21] MEDS: SOTALOL HCL 80 MG TABLET PO SCH (18:02)
[2019-06-21 18:23] LABS: APPEARANCE,URINE CLEAR; BILIRUBIN,URINE NEGATIVE (NEGATIVE); COLOR,URINE YELLOW; GLUCOSE, URINE NEGATIVE (NEGATIVE); KETONES,URINE NEGATIVE (NEGATIVE); LEUKOCYTE ESTERASE,URINE NEGATIVE (NEGATIVE); NITRITE,URINE NEGATIVE (NEGATIVE); PROTEIN,URINE NEGATIVE (NEGATIVE); URINE SPECIFIC GRAVITY 1.008; UROBILINOGEN,URINE NEGATIVE mg/dL (<2.0)
[2019-06-21 19:48] LABS: URINE AMPHETAMINES SCREEN NEGATIVE; URINE BARBITURATES SCREEN NEGATIVE; URINE BENZODIAZEPINES SCREEN NEGATIVE; URINE COCAINE SCREEN NEGATIVE; URINE MARIJUANA (THC) SCREEN NEGATIVE; URINE METHADONE SCREEN NEGATIVE; URINE PHENCYCLIDINE SCREEN NEGATIVE
--- NOTE | 2019-06-21 23:43 | EKG REPORT ---
SEVERITY:- ABNORMAL ECG - ATRIAL-SENSED VENTRICULAR-PACED RHYTHM : Confirmed by: Mary Grant 21-Jun-2019 23:42:51
--- NOTE | 2019-06-21 23:44 | EKG REPORT ---
SEVERITY:- ABNORMAL ECG - ATRIAL-SENSED VENTRICULAR-PACED RHYTHM : Confirmed by: Mary Grant 21-Jun-2019 23:43:52
[2019-06-21 23:56] LABS: CREATINE KINASE MB 1.34 ng/mL (<4.55); TROPONIN I 0.028 ng/mL
[2019-06-22] MEDS: FUROSEMIDE INJ/PF 20 MG/2 ML SDV IV SCH ×2 (05:45→17:54)
[2019-06-22] MEDS: PANTOPRAZOLE SODIUM 40 MG TABLET.DR PO SCH (05:45)
[2019-06-22 06:28] LABS: HEMATOCRIT 39.2 % (37.9-51.0); HEMOGLOBIN 12.9 g/dL (13.5-17.0); MEAN CORPUSCULAR HEMOGLOBIN 28.5 pg (27.0-33.4); MEAN CORPUSCULAR HGB CONC 32.9 g/dL (32.0-36.0); MEAN CORPUSCULAR VOLUME 87 fl (80-97); RED BLOOD COUNT 4.52 10^6/uL (4.35-5.55); WHITE BLOOD COUNT 4.3 10^3/uL (4.0-10.5)
[2019-06-22 07:18] LABS: PLATELET COUNT 95 10^3/uL (150-450)
[2019-06-22 07:22] LABS: ABSOLUTE LYMPHOCYTES# (MANUAL) 1.3 10^3/uL (0.5-4.7); ABSOLUTE MONOCYTES # (MANUAL) 0.4 10^3/uL (0.1-1.4); BASOPHILS % (MANUAL) 0 % (0-2); EOSINOPHILS % (MANUAL) 6 % (0-6); LYMPHOCYTES % (MANUAL) 30 % (13-45); MONOCYTES % (MANUAL) 9 % (3-13); NUCLEATED RED BLOOD CELLS 1 /100 WBC (0); SEGMENTED NEUTROPHILS % (MAN) 55 % (42-78); TOTAL CELLS COUNTED 100
[2019-06-22 07:23] LABS: ANISOCYTOSIS 3+; BURR CELLS 2+; POIKILOCYTOSIS 3+; TOXIC GRANULATION SLIGHT
[2019-06-22 07:24] LABS: OVALOCYTES 1+; PLATELET CLUMPS PRESENT; PLATELET COMMENT DECREASED; SCHISTOCYTES 2+; TEAR DROP CELLS 1+
[2019-06-22] MEDS: ASPIRIN 81 MG TABLET, ENT COATED PO SCH (09:49)
[2019-06-22] MEDS: DIGOXIN 0.125 MG TABLET PO SCH (09:49)
[2019-06-22] MEDS: SACUBITRIL/VALSARTAN 49 MG/51 MG TABLET PO SCH ×2 (09:50→17:53)
[2019-06-22] MEDS: FOLIC ACID 1 MG TABLET PO SCH (09:50)
[2019-06-22] MEDS: SOTALOL HCL 80 MG TABLET PO SCH ×2 (09:50→17:53)
[2019-06-22] MEDS ORDERED: CEFTRIAXONE 1 GM/D5W RTU 1 GM/50 ML RTUPB IV SCH (10:00)
[2019-06-22] MEDS: ENOXAPARIN SODIUM INJ 40 MG/0.4 ML DISP.SYRIN SUBCUT SCH (10:21)
--- NOTE | 2019-06-22 11:28 | PDOC PROGRESS REPORT ---
Subjective Progress Note for:: 06/22/19 Subjective:: Patient is feeling better Patient's VQ scan is negative Patient EF is very low Patient seen by Dr. Grant Patient all cultures negative's Reason For Visit: CHF Physical Exam Vital Signs: Temp Pulse Resp BP Pulse Ox 97.8 F 63 16 108/83 99 06/22/19 03:00 06/22/19 07:40 06/22/19 07:40 06/22/19 07:40 06/22/19 07:40 Intake & Output 06/21/19 06/22/19 06/23/19 06:59 06:59 06:59 Intake Total 50 1715 Output Total 1945 Balance 50 -230 Weight 79.7 kg 80.1 kg General appearance: PRESENT: no acute distress, well-developed, well-nourished Head exam: PRESENT: atraumatic, normocephalic Eye exam: PRESENT: conjunctiva pink, EOMI, PERRLA. ABSENT: scleral icterus Ear exam: PRESENT: normal external ear exam Mouth exam: PRESENT: moist, tongue midline Neck exam: PRESENT: full ROM. ABSENT: carotid bruit, JVD, lymphadenopathy, thyromegaly Respiratory exam: PRESENT: clear to auscultation john Cardiovascular exam: PRESENT: RRR. ABSENT: diastolic murmur, rubs, systolic murmur Pulses: PRESENT: normal dorsalis pedis pul, +2 pedal pulses bilateral Vascular exam: PRESENT: normal capillary refill GI/Abdominal exam: PRESENT: normal bowel sounds, soft. ABSENT: distended, guarding, mass, organolmegaly, rebound, tenderness Rectal exam: PRESENT: deferred Neurological exam: PRESENT: alert, awake, oriented to person, oriented to place, oriented to time, oriented to situation, CN II-XII grossly intact. ABSENT: jacquelyn r sensory deficit Psychiatric exam: PRESENT: appropriate affect, normal mood. ABSENT: homicidal ideation, suicidal ideation Skin exam: PRESENT: dry, intact, warm. ABSENT: cyanosis, rash Results Laboratory Results: 06/22/19 05:58 06/21/19 01:24 06/21/19 06/22/19 17:37 05:58 WBC 4.3 RBC 4.52 Hgb 12.9 L Hct 39.2 MCV 87 MCH 28.5 MCHC 32.9 RDW 23.0 H Plt Count 95 L Seg Neutrophils % Not Reportable Urine Color YELLOW Urine Appearance CLEAR Urine pH 5.0 Ur Specific Hayden 1.008 Urine Protein NEGATIVE Urine Glucose (UA) NEGATIVE Urine Ketones NEGATIVE Urine Blood NEGATIVE Urine Nitrite NEGATIVE Ur Leukocyte Esterase NEGATIVE Urine WBC (Auto) 2 Urine RBC (Auto) 0 06/20/19 06/20/19 06/20/19 15:00 15:00 16:32 Creatine Kinase Cancelled 41 L CK-MB (CK-2) Cancelled Troponin I Cancelled NT-Pro-B Natriuret Pep 06/20/19 06/20/19 06/21/19 16:32 16:32 06:09 Creatine Kinase 51 L CK-MB (CK-2) 0.77 Troponin I 0.032 NT-Pro-B Natriuret Pep 72200 H 06/21/19 06/21/19 06/21/19 06:09 11:23 11:23 Creatine Kinase 60 CK-MB (CK-2) 1.25 1.47 Troponin I 0.032 0.034 NT-Pro-B Natriuret Pep 06/21/19 06/21/19 06/21/19 16:39 16:39 23:21 Creatine Kinase 59 61 CK-MB (CK-2) 1.34 Troponin I 0.029 NT-Pro-B Natriuret Pep 06/21/19 23:21 Creatine Kinase CK-MB (CK-2) 1.34 Troponin I 0.028 NT-Pro-B Natriuret Pep Impressions: Chest X-Ray 06/20/19 00:00 IMPRESSION: Cardiomegaly and trace bilateral pleural effusions without evidence pulmonary edema. Lung Scan-VQ PR 06/21/19 00:00 IMPRESSION: NORMAL PERFUSION LUNG SCAN. NEGATIVE FOR PULMONARY EMBOLI. Assessment & Plan - Diagnosis (1) Shortness of breath Is this a current diagnosis for this admission?: Yes Plan: Due to the acute congestive heart failure currently all improving (2) Acute systolic heart failure Is this a current diagnosis for this admission?: Yes Plan: Continue IV Lasix (4) Cardiomyopathy Qualifiers: Cardiomyopathy type: ischemic Qualified Code(s): I25.5 - Ischemic cardiomyopathy Is this a current diagnosis for this admission?: Yes (5) Rheumatoid aortitis Is this a current diagnosis for this admission?: Yes (6) Elevated lactic acid level Is this a current diagnosis for this admission?: Yes Plan: So far all culture is negative patients remain afebrile we will discontinues the IV antibiotic repeat the chest x-ray - Time Time Spent with patient: 15-24 minutes Level of Care: IMCU Medications reviewed and adjusted accordingly: Yes Anticipated discharge: Home Within: Other - Plan Summary Plan Summary: See MD orders
--- NOTE | 2019-06-22 15:21 | RADIOLOGY REPORT (SQ) ---
EXAM DESCRIPTION: CHEST 2 VIEWS COMPLETED DATE/TIME: 06/22/2019 3:10 pm REASON FOR STUDY: chf COMPARISON: 06/20/2019. EXAM PARAMETERS: NUMBER OF VIEWS: two views TECHNIQUE: Digital Frontal and Lateral radiographic views of the chest acquired. RADIATION DOSE: NA LIMITATIONS: none FINDINGS: LUNGS AND PLEURA: No opacities, masses or pneumothorax. No pleural effusion. MEDIASTINUM AND HILAR STRUCTURES: No masses or contour abnormalities. HEART AND VASCULAR STRUCTURES: Mild cardiomegaly. No evidence for failure. BONES: No acute findings. Degenerative changes in the shoulders. HARDWARE: Pacemaker. OTHER: No other significant finding. IMPRESSION: IMPROVED APPEARANCE. MILD CARDIOMEGALY. TECHNICAL DOCUMENTATION: JOB ID: [id number] [employer]- All Rights Reserved Reading location - IP/workstation name: [email or web address]
--- NOTE | 2019-06-22 20:17 | PDOC CONSULTATION ---
Consultation Consult Date: 06/21/19 Attending physician:: RAFA SIMPSON Provider Consulted: LUCY MCQUEEN Consult reason:: CHF History of Present Illness Admission Date/PCP: 06/21/19 00:00 FUAD BLEVINS MD Patient complains of: Dyspnea History of Present Illness: STANLEY TOLEDO is a 69 year old male patient of Dr. Blevins with a history of the chronic congestive heart failure with the very low EF AICD placement currently see a Dr. Carlton Simpson in [place] came to the emergency department with the complaining of for increasing shortness of the breath since last 1 days Patient's denied any chest pain denied any defibrillator issues Patient's had a history of rheumatoid arthritis but currently see her Dr. Bloom Do not require any oxygen at home but in the emergency department patient required 2 L nasal cannula EMS lactic acid was 4.7 and ER physician repeat the lactic acid is coming down to 1.5 and most likely not related to any sepsis Patient's white count is normal patient having no fever no chills Patient's most likely consistent with acute congestive heart failure with a very low EF When I saw the patient on the telemetry bed patient's denied any chest pain still have a short of breath requiring oxygen Patients does not have a no leg swelling This history obtained by Dr. Simpson was reviewed and confirmed with the patient. On repeated questioning he denied any chest pain. He denied any recent defibrillator discharge. He just claims generalized weakness and some shortness of breath. Past Medical History Cardiac Medical History: Reports: Congestive Heart Failure, Coronary Artery Disease, Hypertension Endocrine Medical History: Denies: Diabetes Mellitus Type 1, Diabetes Mellitus Type 2 Musculoskeltal Medical History: Reports: Arthritis - rheumatoid Past Surgical History Past Surgical History: Reports: Cardiac Catheterization, Internal Defibrillator - LV lead, RV and RA lead noted., Orthopedic Surgery Social History Information Source: Patient Smoking Status: Never Smoker Electronic Cigarette use?: No Frequency of Alcohol Use: Rare Hx Recreational Drug Use: No Drugs: None Hx Prescription Drug Abuse: No - Advance Directive Resuscitation Status: Full Code Family History Family History: Reviewed & Not Pertinent - Negative for premature coronary artery disease or sudden cardiac in the family amongst first degree relatives. Parental Family History Reviewed: Yes Children Family History Reviewed: Yes Sibling(s) Family History Reviewed.: Yes Medication/Allergy Home Medications: Folic Acid 1 mg PO DAILY 04/12/15 Sotalol HCl [Sotalol] 80 mg PO BID 04/12/15 Aspirin [Ecotrin 81 mg EC Tablet] 81 mg PO DAILY 06/21/19 Sacubitril/Valsartan [Entresto 49 mg/51 mg Tablet] 1 tab PO BID 06/21/19 Allergies/Adverse Reactions: No Known Allergies Allergy (Verified 08/07/16 06:53) Review of Systems Review of Systems: Please see history of present illness and past medical history as wall. Constitutional: No fever or chills reported. Head : No recent chronic headaches, recent head injury. Eyes: No recent eye pain, diplopia, redness, discharge, acute visual changes. Ears: No recent chronic ear pain, acute hearing loss, ear discharge. Oral cavity: No recent ulcerations, bleeding, oral cavity discomfort. Neck: No recent acute neck pain reported. Hematologic: No recent easy bruising or bleeding. Lymphatic: No recent lymph node enlargement reported. Cardiovascular system review: See history of present illness. Respiratory system review: No hemoptysis or blood clots in the lungs reported. Mild Shortness of breath on exertion Gastrointestinal system review: Negative for any recent acute hematemesis, melena. Genitourinary system review: No recent acute or chronic hematuria, flank pain, UTI etc. reported. Skin system review: Negative for any recent abnormal bruising, no rash, no pruritus reported. Neurologic: No prior history of strokes, mini strokes, seizure disorder. Psychologic: No history of major psychosis or major depression reported. Musculoskeletal: Minor aches and pains reported. No acute joint swelling reported. Endocrine: No recent polyuria, polydipsia, recent heat or cold intolerance. Physical Exam Vital Signs: Temp Pulse Resp BP Pulse Ox 97.5 F 75 22 H 136/96 H 100 06/21/19 19:00 06/21/19 19:00 06/21/19 19:00 06/21/19 19:06/21/19 19:00 Intake & Output 06/20/19 06/21/19 06/22/19 06:59 06:59 06:59 Intake Total 50 670 Output Total 500 Balance 50 170 Weight 79.7 kg Exam: GENERAL: well-nourished and in no acute distress. Alert and oriented x3 HEAD: Atraumatic, normocephalic. EYES: COLT, sclera anicteric, conjunctiva are normal. ENT: Moist mucous membranes. No oral ulcerations or bleeding gums noted. No obvious ear, nose or throat abnormalities noted. NECK: supple without lymphadenopathy. Trachea is central. No cervical or axillary lymphadenopathy noted. Carotids are 2+, JVD Elevated LUNGS: Basilar fine crackles with few wheezes rales or rhonchi noted. No significant dullness noted on percussion. CHEST: Palpation of the chest wall shows no significant chest wall tenderness. HEART: [place] TECHNICAL SPEC, No PSH, 1/6 CHANG aortic area, 1/6 erazo systolic murmur mitral area, no rubs, no gallops. ABDOMEN: Soft, no significant tenderness appreciated, normoactive bowel sounds. No guarding, no rebound. No rigidity noted . No masses appreciated. EXTREMITIES: Pedal pulses are 1-2+, no calf tenderness noted. No clubbing or cyanosis. negative pedal edema noted NEUROLOGICAL: Focused neurological exam showed no significant neurologic deficit. Normal speech, no focal weakness appreciated. PSYCH: Normal mood, normal affect. Judgment and insight within normal limits. SKIN: No significant ecchymosis, skin is noted to be warm. MUSCULOSKELETAL EXAM: No significant acute joint swelling noted. Results Laboratory Results: 06/21/19 06:09 06/21/19 01:24 06/20/19 06/21/19 06/21/19 23:05 00:24 01:24 WBC RBC Hgb Hct MCV MCH MCHC RDW Plt Count Seg Neutrophils % Sodium Cancelled 139.4 Potassium Cancelled 4.2 Chloride Cancelled 109 H Carbon Dioxide Cancelled 22 Anion Gap Cancelled 8 BUN Cancelled 31 H Creatinine Cancelled 1.36 H Est GFR ( Amer) Cancelled > 60 Est GFR (Non-Af Amer) Cancelled Glucose Cancelled 94 Lactic Acid 2.5 H Calcium Cancelled 8.3 L Urine Color Urine Appearance Urine pH Ur Specific [place] Urine Protein Urine Glucose (UA) Urine Ketones Urine Blood Urine Nitrite Ur Leukocyte Esterase Urine WBC (Auto) Urine RBC (Auto) 06/21/19 06/21/19 06:09 17:37 WBC 5.1 RBC 4.23 L Hgb 11.8 L Hct 36.8 L MCV 87 MCH 28.0 MCHC 32.1 RDW 23.4 H Plt Count 102 L Seg Neutrophils % Not Reportable Sodium Potassium Chloride Carbon Dioxide Anion Gap BUN Creatinine Est GFR ( Amer) Est GFR (Non-Af Amer) Glucose Lactic Acid Calcium Urine Color YELLOW Urine Appearance CLEAR Urine pH 5.0 Ur Specific [place] 1.008 Urine Protein NEGATIVE Urine Glucose (UA) NEGATIVE Urine Ketones NEGATIVE Urine Blood NEGATIVE Urine Nitrite NEGATIVE Ur Leukocyte Esterase NEGATIVE Urine WBC (Auto) 2 Urine RBC (Auto) 0 06/20/19 06/20/19 06/20/19 15:00 15:00 16:32 Creatine Kinase Cancelled 41 L CK-MB (CK-2) Cancelled Troponin I Cancelled NT-Pro-B Natriuret Pep 06/20/19 06/20/19 06/21/19 16:32 16:32 06:09 Creatine Kinase 51 L CK-MB (CK-2) 0.77 Troponin I 0.032 NT-Pro-B Natriuret Pep 42620 H 06/21/19 06/21/19 06/21/19 06:09 11:23 11:23 Creatine Kinase 60 CK-MB (CK-2) 1.25 1.47 Troponin I 0.032 0.034 NT-Pro-B Natriuret Pep 06/21/19 06/21/19 16:39 16:39 Creatine Kinase 59 CK-MB (CK-2) 1.34 Troponin I 0.029 NT-Pro-B Natriuret Pep EKG Comments: Atrial sensed and ventricular paced rhythm noted Impressions: Chest X-Ray 06/20/19 00:00 IMPRESSION: Cardiomegaly and trace bilateral pleural effusions without evidence pulmonary edema. Lung Scan-VQ NM 06/21/19 00:00 IMPRESSION: NORMAL PERFUSION LUNG SCAN. NEGATIVE FOR PULMONARY EMBOLI. Assessment & Plan - Diagnosis (1) Acute on chronic systolic heart failure Is this a current diagnosis for this admission?: Yes (2) Elevated lactic acid level Is this a current diagnosis for this admission?: Yes (3) Cardiomyopathy Qualifiers: Cardiomyopathy type: unspecified Qualified Code(s): I42.9 - Cardiomyopathy, unspecified Is this a current diagnosis for this admission?: Yes (4) Rheumatoid aortitis Is this a current diagnosis for this admission?: Yes - Notes Notes: Patient presents with symptoms suggestive of CHF secondary to chronic left heart failure due to systolic dysfunction with possible exacerbation. Patient seems to suggest low cardiac output syndrome with elevated lactic acid level. May consider doing a venous ABG. This is to look at mixed venous saturation. At this point patient seems to be on a good regimen. If patient blood pressure allows, add low-dose hydralazine nitrate combination. I did order a 2D echocardiogram to have an assessment of his underlying EF. Patient seems to have significant COPD and also significant general debility. Patient may benefit from physical therapy. Patient medical regimen will be gradually optimized. We will continue to follow patient. If patient deteriorates, consider transfer to his primary care ems coordinator at [place]. - Time Time Spent: 30 to 50 Minutes Medications reviewed and adjusted accordingly: Yes
--- NOTE | 2019-06-22 20:21 | PDOC PROGRESS REPORT ---
Subjective Progress Note for:: 06/22/19 Subjective:: Patient seems to be doing better with gradual improvement. Pt is denying any chest arm or neck discomfort. Patient denying any PND, orthopnea. Patient denied any sustained palpitations, dizziness, syncope, near syncope. Patient denying any fever chills. Patient denying any other significant discomfort. Patient is maintaining a sensed V paced rhythm. Pedal edema has improved. Review of systems: Rest review of systems negative. Medications: Medications have been reviewed. Reason For Visit: CHF Physical Exam Vital Signs: Temp Pulse Resp BP Pulse Ox 97.3 F 69 19 107/84 100 06/22/19 16:39 06/22/19 19:00 06/22/19 16:39 06/22/19 16:39 06/22/19 16:39 Intake & Output 06/21/19 06/22/19 06/23/19 06:59 06:59 06:59 Intake Total 50 1715 926 Output Total 1945 550 Balance 50 -230 376 Weight 79.7 kg 80.1 kg Exam: GENERAL: well-nourished and in no acute distress. Alert and oriented x3 HEAD: Atraumatic, normocephalic. EYES: COLT, sclera anicteric, conjunctiva are normal. ENT: Moist mucous membranes. No oral ulcerations or bleeding gums noted. No obvious ear, nose or throat abnormalities noted. NECK: supple without lymphadenopathy. Trachea is central. No cervical or axillary lymphadenopathy noted. Carotids are 2+, JVD WNL LUNGS: Breath sounds clear bilaterally. No wheezes rales or rhonchi noted. No significant dullness noted on percussion. CHEST: Palpation of the chest wall shows no significant chest wall tenderness. 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 ABDOMEN: Soft, no significant tenderness appreciated, normoactive bowel sounds. No guarding, no rebound. No rigidity noted . No masses appreciated. EXTREMITIES: Pedal pulses are 1-2+, no calf tenderness noted. No clubbing or cyanosis. Trace to 1+ pedal edema noted NEUROLOGICAL: Focused neurological exam showed no significant neurologic deficit. Normal speech, no focal weakness appreciated. PSYCH: Normal mood, normal affect. Judgment and insight within normal limits. SKIN: No significant ecchymosis, skin is noted to be warm. MUSCULOSKELETAL EXAM: No significant acute joint swelling noted. Results Laboratory Results: 06/22/19 05:58 06/21/19 01:24 06/22/19 05:58 WBC 4.3 RBC 4.52 Hgb 12.9 L Hct 39.2 MCV 87 MCH 28.5 MCHC 32.9 RDW 23.0 H Plt Count 95 L Seg Neutrophils % Not Reportable 06/20/19 06/20/19 06/20/19 15:00 15:00 16:32 Creatine Kinase Cancelled 41 L CK-MB (CK-2) Cancelled Troponin I Cancelled NT-Pro-B Natriuret Pep 06/20/19 06/20/19 06/21/19 16:32 16:32 06:09 Creatine Kinase 51 L CK-MB (CK-2) 0.77 Troponin I 0.032 NT-Pro-B Natriuret Pep 06134 H 06/21/19 06/21/19 06/21/19 06:09 11:23 11:23 Creatine Kinase 60 CK-MB (CK-2) 1.25 1.47 Troponin I 0.032 0.034 NT-Pro-B Natriuret Pep 06/21/19 06/21/19 06/21/19 16:39 16:39 23:21 Creatine Kinase 59 61 CK-MB (CK-2) 1.34 Troponin I 0.029 NT-Pro-B Natriuret Pep 06/21/19 23:21 Creatine Kinase CK-MB (CK-2) 1.34 Troponin I 0.028 NT-Pro-B Natriuret Pep EKG Comments: No significant cardiac arrhythmia noted. Impressions: Lung Scan-VQ NM 06/21/19 00:00 IMPRESSION: NORMAL PERFUSION LUNG SCAN. NEGATIVE FOR PULMONARY EMBOLI. Chest X-Ray 06/22/19 00:00 IMPRESSION: IMPROVED APPEARANCE. MILD CARDIOMEGALY. Assessment & Plan - Diagnosis (1) Acute on chronic systolic heart failure Is this a current diagnosis for this admission?: Yes (2) Elevated lactic acid level Is this a current diagnosis for this admission?: Yes (3) Cardiomyopathy Qualifiers: Cardiomyopathy type: unspecified Qualified Code(s): I42.9 - Cardiomyopathy, unspecified Is this a current diagnosis for this admission?: Yes (4) Rheumatoid aortitis Is this a current diagnosis for this admission?: Yes - Notes Notes: Patient claims to be somewhat improved from admission. Still very weak. Had added digoxin to the regimen. Have decreased Lasix dose. Placed patient on Lasix 20 mg p.o. daily. Will consider adding spironolactone and hydralazine nitrate combination at low-dose initially. Continue with other home regimen which seems quite satisfactory. Patient medications were reviewed. Patient does not have a or any children. He was asked to appoint a surrogate decision maker.. - Time Time with patient: Greater than 35 minutes - More than 50% of the time spent coordinating care, discussing management plans with involved caregivers. Management plans discussed with involved personnels. Medical decision making was of moderate to high complexity, patient's has multiple comorbidities. Medications reviewed and adjusted accordingly: Yes
[2019-06-23 05:41] LABS: HEMATOCRIT 39.2 % (37.9-51.0); HEMOGLOBIN 12.9 g/dL (13.5-17.0); MEAN CORPUSCULAR HEMOGLOBIN 28.2 pg (27.0-33.4); MEAN CORPUSCULAR HGB CONC 32.9 g/dL (32.0-36.0); MEAN CORPUSCULAR VOLUME 86 fl (80-97); RED BLOOD COUNT 4.57 10^6/uL (4.35-5.55); RED CELL DISTRIBUTION WIDTH 23.2 % (11.5-14.0); WHITE BLOOD COUNT 3.9 10^3/uL (4.0-10.5)
[2019-06-23] MEDS: PANTOPRAZOLE SODIUM 40 MG TABLET.DR PO SCH (05:41)
[2019-06-23 06:05] LABS: ANION GAP 9 (5-19); BLOOD UREA NITROGEN 31 mg/dL (7-20); CALCIUM 8.3 mg/dL (8.4-10.2); CARBON DIOXIDE 23 mmol/L (22-30); CHLORIDE 104 mmol/L (98-107); GLUCOSE 86 mg/dL (75-110); PLATELET COUNT 85 10^3/uL (150-450); POTASSIUM 3.9 mmol/L (3.6-5.0)
[2019-06-23 06:10] LABS: ABSOLUTE LYMPHOCYTES# (MANUAL) 1.4 10^3/uL (0.5-4.7); ABSOLUTE MONOCYTES # (MANUAL) 0.2 10^3/uL (0.1-1.4); ANISOCYTOSIS 3+; BAND NEUTROPHILS % (MANUAL) 3 % (3-5); BASOPHILS % (MANUAL) 0 % (0-2); BURR CELLS 1+; EOSINOPHILS % (MANUAL) 3 % (0-6); LYMPHOCYTES % (MANUAL) 35 % (13-45); MONOCYTES % (MANUAL) 5 % (3-13); PLATELET COMMENT DECREASED; POLYCHROMASIA 1+; SEGMENTED NEUTROPHILS % (MAN) 54 % (42-78); TEAR DROP CELLS 1+; TOTAL CELLS COUNTED 100
[2019-06-23] MEDS: ENOXAPARIN SODIUM INJ 40 MG/0.4 ML DISP.SYRIN SUBCUT SCH (09:44)
[2019-06-23] MEDS: SOTALOL HCL 80 MG TABLET PO SCH ×2 (09:45→17:38)
[2019-06-23] MEDS: FOLIC ACID 1 MG TABLET PO SCH (09:45)
[2019-06-23] MEDS: ASPIRIN 81 MG TABLET, ENT COATED PO SCH (09:45)
[2019-06-23] MEDS: FUROSEMIDE 20 MG TABLET PO SCH (09:45)
[2019-06-23] MEDS: SACUBITRIL/VALSARTAN 49 MG/51 MG TABLET PO SCH ×2 (09:45→17:38)
[2019-06-23] MEDS: DIGOXIN 0.125 MG TABLET PO SCH (09:48)
--- NOTE | 2019-06-23 19:28 | XCELERA REPORT ---
[address] [address] Transthoracic Echocardiogram Report Name: STANLEY TOLEDO Age: 69 yrs Gender: Male : 1950 Patient Status: Inpatient Patient Location: [address] [place], [place] [address] Study Date: 06/23/2019 03:11 PM Height: 74 in Weight: 175 lb BSA: 2.1 m2 Procedure: A complete two-dimensional transthoracic echocardiogram was performed (2D, M-mode, spectral and color flow Doppler). The study was technically difficult with many images being suboptimal in quality. Reason For Study: CHF Ordering Physician: MARY GRANT Performed By: Luz Marina Ryan Interpretation Summary The Ejection Fraction estimate is 20-25% Left ventricular systolic function is severely reduced. Doppler measurements suggest reversible restrictive left ventricular relaxation, which is associated with grade III/IV or moderate diastolic dysfunction There is severe global hypokinesis of the left ventricle. There is apical wall akinesis There is mild concentric left ventricular hypertrophy. The left ventricle is mildly dilated. The right ventricular systolic function is normal. The left atrium is mildly dilated. The right atrium is normal in size There is a mild amount of mitral regurgitation There is no mitral valve stenosis. There is a trace amount of aortic regurgitation There is no aortic valve stenosis Right ventricular systolic pressure is estimated to be elevated at 30-40mmHg. There is mild pulmonary hypertension by echo There is a mild amount of tricuspid regurgitation The aortic root is not well visualized but is probably normal size. The inferior vena cava appeared dilated and decreased < 50% with respiration (RAP 15-20 mmHg) Minimal pericardial effusion. MMode/2D Measurements & Calculations RVDd: 1.9 cm LVIDd: 6.0 cm FS: 15.0 % Ao root diam: 3.0 cm IVSd: 1.1 cm LVIDs: 5.1 cm EDV(Teich): 178.5 ml Ao root area: 7.2 cm2 LVPWd: 1.0 cm ESV(Teich): 122.9 ml LA dimension: 3.6 cm EF(Teich): 31.1 % Doppler Measurements & Calculations MV E max surekha: MV P1/2t max surekha: Ao V2 max: LV V1 max P.2 cm/sec 54.3 cm/sec 53.2 cm/sec 0.99 mmHg MV A max surekha: MV P1/2t: 100.4 msec Ao max P.1 mmHgLV V1 max: 43.2 cm/sec MVA(P1/2t): 2.2 cm2 49.6 cm/sec MV E/A: 1.6 MV dec slope: 158.3 cm/sec2 MV dec time: 0.21 sec PA V2 max: TR max surekha: MV P1/2t-pr_phl: 33.9 cm/sec 256.0 cm/sec 100.4 msec PA max PG: TR max P.2 mmHg 0.47 mmHg Left Ventricle The left ventricle is mildly dilated. There is mild concentric left ventricular hypertrophy. Left ventricular systolic function is severely reduced. The Ejection Fraction estimate is 20-25%. Doppler measurements suggest reversible restrictive left ventricular relaxation, which is associated with grade III/IV or moderate diastolic dysfunction. There is severe global hypokinesis of the left ventricle. There is apical wall akinesis. Right Ventricle The right ventricle is normal size. There is normal right ventricular wall thickness. The right ventricular systolic function is normal. Atria The right atrium is normal in size. The left atrium is mildly dilated. Interarterial septum not well visualized and not well dopplered. Cannot comment on ASD/PFO presence. Mitral Valve The mitral valve leaflets are sclerotic, but show no functional abnormalities. There is no mitral valve stenosis. There is a mild amount of mitral regurgitation. Aortic Valve The aortic valve is not well visualized secondary to technical limitations. There is no aortic valve stenosis. There is a trace amount of aortic regurgitation. Tricuspid Valve The tricuspid valve is not well visualized, but is grossly normal. There is no tricuspid stenosis. There is a mild amount of tricuspid regurgitation. There is mild pulmonary hypertension by echo. Right ventricular systolic pressure is estimated to be elevated at 30-40mmHg. Pulmonic Valve The pulmonic valve is not well visualized. Great Vessels The aortic root is not well visualized but is probably normal size. The inferior vena cava appeared dilated and decreased < 50% with respiration (RAP 15-20 mmHg). Effusions Minimal pericardial effusion. : MARY GRANT Shyamal
--- NOTE | 2019-06-23 22:08 | PDOC PROGRESS REPORT ---
Subjective Progress Note for:: 06/23/19 Subjective:: Patient is well-known to me, he was admitted over the weekend by Dr. 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 He was supposed to be on anticoagulant, he has recently very poorly adherent to recommended medications he was supposed to be following with [facility] but He is not consistently doing this, Used to prescribe the disease modifying anti-rheumatoid medication for his use but he has not been seen in the office recently, it looks very debilitated with deformity of his knees, and the joints of his hand Reason For Visit: CHF Physical Exam Vital Signs: Temp Pulse Resp BP Pulse Ox 97.4 F 60 18 102/73 100 06/23/19 15:55 06/23/19 19:00 06/23/19 15:55 06/23/19 15:55 06/23/19 15:55 Intake & Output 06/22/19 06/23/19 06/24/19 06:59 06:59 06:59 Intake Total 1715 2626 480 Output Total 1945 1400 500 Balance -230 1226 -20 Weight 80.1 kg 80.1 kg General appearance: PRESENT: no acute distress, other - Patient looks debilitated Eye exam: PRESENT: PERRLA Respiratory exam: PRESENT: clear to auscultation john Cardiovascular exam: PRESENT: +S1, +S2 GI/Abdominal exam: PRESENT: soft Musculoskeletal exam: PRESENT: deformity Neurological exam: PRESENT: alert Results Laboratory Results: 06/23/19 05:14 06/23/19 05:14 06/23/19 06/23/19 05:14 05:14 WBC 3.9 L RBC 4.57 Hgb 12.9 L Hct 39.2 MCV 86 MCH 28.2 MCHC 32.9 RDW 23.2 H Plt Count 85 L Seg Neutrophils % Not Reportable Sodium 136.4 L Potassium 3.9 Chloride 104 Carbon Dioxide 23 Anion Gap 9 BUN 31 H Creatinine 1.02 Est GFR ( Amer) > 60 Glucose 86 Calcium 8.3 L 06/21/19 17:37 Clean Catch Midstream Urine Culture - Final Mixed Urogenital Candida 06/20/19 06/20/19 06/20/19 15:00 15:00 16:32 Creatine Kinase Cancelled 41 L CK-MB (CK-2) Cancelled Troponin I Cancelled NT-Pro-B Natriuret Pep 06/20/19 06/20/19 06/21/19 16:32 16:32 06:09 Creatine Kinase 51 L CK-MB (CK-2) 0.77 Troponin I 0.032 NT-Pro-B Natriuret Pep 68908 H 06/21/19 06/21/19 06/21/19 06:09 11:23 11:23 Creatine Kinase 60 CK-MB (CK-2) 1.25 1.47 Troponin I 0.032 0.034 NT-Pro-B Natriuret Pep 06/21/19 06/21/19 06/21/19 16:39 16:39 23:21 Creatine Kinase 59 61 CK-MB (CK-2) 1.34 Troponin I 0.029 NT-Pro-B Natriuret Pep 06/21/19 23:21 Creatine Kinase CK-MB (CK-2) 1.34 Troponin I 0.028 NT-Pro-B Natriuret Pep Impressions: Lung Scan-VQ NM 06/21/19 00:00 IMPRESSION: NORMAL PERFUSION LUNG SCAN. NEGATIVE FOR PULMONARY EMBOLI. Chest X-Ray 06/22/19 00:00 IMPRESSION: IMPROVED APPEARANCE. MILD CARDIOMEGALY. Assessment & Plan - Diagnosis (1) Acute on chronic combined systolic (congestive) and diastolic (congestive) heart failure Is this a current diagnosis for this admission?: Yes Plan: Continue present medications (2) Rheumatoid arthritis Qualifiers: Rheumatoid arthritis location: hand Rheumatoid factor presence: with rheumatoid factor Laterality: bilateral Qualified Code(s): M05.741 - Rheumatoid arthritis with rheumatoid factor of right hand without organ or systems involvement; M05.742 - Rheumatoid arthritis with rheumatoid factor of left hand without organ or systems involvement Is this a current diagnosis for this admission?: Yes Plan: Check CCP, rheumatoid factor, CRP (3) Persistent atrial fibrillation Is this a current diagnosis for this admission?: Yes Plan: Starts anticoagulant with Eliquis, DC Lovenox DC aspirin - Time Time Spent with patient: 35 or more minutes Level of Care: TELE Medications reviewed and adjusted accordingly: Yes
[2019-06-23] MEDS: APIXABAN 5 MG TABLET PO SCH (22:25)
[2019-06-24] MEDS: PANTOPRAZOLE SODIUM 40 MG TABLET.DR PO SCH (05:19)
[2019-06-24 06:31] LABS: ANION GAP 7 (5-19); BLOOD UREA NITROGEN 26 mg/dL (7-20); CALCIUM 7.9 mg/dL (8.4-10.2); CARBON DIOXIDE 26 mmol/L (22-30); CHLORIDE 103 mmol/L (98-107); GLUCOSE 81 mg/dL (75-110)
[2019-06-24] MEDS ORDERED: ISOSORB DINIT/HYDRALAZINE HCL 20-37.5 MG TABLET PO SCH (10:00)
--- NOTE | 2019-06-24 10:03 | PDOC PROGRESS REPORT ---
Subjective Progress Note for:: 06/23/19 Subjective:: Patient seems somewhat better than yesterday but still looks very debilitated. Patient seems to be doing better with gradual improvement. Pt is denying any chest arm or neck discomfort. Patient denying any PND, orthopnea. Patient denied any sustained palpitations, dizziness, syncope, near syncope. Patient denying any fever chills. Patient denying any other significant discomfort. Patient is maintaining a sensed V paced rhythm. Pedal edema has improved. Review of systems: Rest review of systems negative. Medications: Medications have been reviewed. Reason For Visit: CHF Physical Exam Vital Signs: Temp Pulse Resp BP Pulse Ox 97.4 F 60 18 102/73 100 06/23/19 15:55 06/23/19 15:55 06/23/19 15:55 06/23/19 15:55 06/23/19 15:55 Intake & Output 06/22/19 06/23/19 06/24/19 06:59 06:59 06:59 Intake Total 1715 2626 Output Total 1945 1400 Balance -230 1226 Weight 80.1 kg 80.1 kg Exam: GENERAL: well-nourished and in no acute distress. Alert and oriented x3 HEAD: Atraumatic, normocephalic. EYES: COLT, sclera anicteric, conjunctiva are normal. ENT: Moist mucous membranes. No oral ulcerations or bleeding gums noted. No obvious ear, nose or throat abnormalities noted. NECK: supple without lymphadenopathy. Trachea is central. No cervical or axillary lymphadenopathy noted. Carotids are 2+, JVD WNL LUNGS: Few bibasilar crackles noted. No wheezes rales or rhonchi noted. No significant dullness noted on percussion. CHEST: Palpation of the chest wall shows no significant chest wall tenderness. 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 ABDOMEN: Soft, no significant tenderness appreciated, normoactive bowel sounds. No guarding, no rebound. No rigidity noted . No masses appreciated. EXTREMITIES: Pedal pulses are 1-2+, no calf tenderness noted. No clubbing or cyanosis. 1+ pedal edema noted NEUROLOGICAL: Focused neurological exam showed no significant neurologic deficit. Normal speech, no focal weakness appreciated. PSYCH: Normal mood, normal affect. Judgment and insight within normal limits. SKIN: No significant ecchymosis, skin is noted to be warm. MUSCULOSKELETAL EXAM: No significant acute joint swelling noted. Results Laboratory Results: 06/23/19 05:14 06/23/19 05:14 06/23/19 06/23/19 05:14 05:14 WBC 3.9 L RBC 4.57 Hgb 12.9 L Hct 39.2 MCV 86 MCH 28.2 MCHC 32.9 RDW 23.2 H Plt Count 85 L Seg Neutrophils % Not Reportable Sodium 136.4 L Potassium 3.9 Chloride 104 Carbon Dioxide 23 Anion Gap 9 BUN 31 H Creatinine 1.02 Est GFR ( Amer) > 60 Glucose 86 Calcium 8.3 L 06/21/19 17:37 Clean Catch Midstream Urine Culture - Final Mixed Urogenital Candida 06/20/19 06/20/19 06/20/19 15:00 15:00 16:32 Creatine Kinase Cancelled 41 L CK-MB (CK-2) Cancelled Troponin I Cancelled NT-Pro-B Natriuret Pep 06/20/19 06/20/19 06/21/19 16:32 16:32 06:09 Creatine Kinase 51 L CK-MB (CK-2) 0.77 Troponin I 0.032 NT-Pro-B Natriuret Pep 65747 H 06/21/19 06/21/19 06/21/19 06:09 11:23 11:23 Creatine Kinase 60 CK-MB (CK-2) 1.25 1.47 Troponin I 0.032 0.034 NT-Pro-B Natriuret Pep 06/21/19 06/21/19 06/21/19 16:39 16:39 23:21 Creatine Kinase 59 61 CK-MB (CK-2) 1.34 Troponin I 0.029 NT-Pro-B Natriuret Pep 06/21/19 23:21 Creatine Kinase CK-MB (CK-2) 1.34 Troponin I 0.028 NT-Pro-B Natriuret Pep Impressions: Lung Scan-VQ NM 06/21/19 00:00 IMPRESSION: NORMAL PERFUSION LUNG SCAN. NEGATIVE FOR PULMONARY EMBOLI. Chest X-Ray 06/22/19 00:00 IMPRESSION: IMPROVED APPEARANCE. MILD CARDIOMEGALY. Assessment & Plan - Diagnosis (1) Acute on chronic systolic heart failure Is this a current diagnosis for this admission?: Yes (2) Elevated lactic acid level Is this a current diagnosis for this admission?: Yes (3) Cardiomyopathy Qualifiers: Cardiomyopathy type: unspecified Qualified Code(s): I42.9 - Cardiomyopathy, unspecified Is this a current diagnosis for this admission?: Yes (4) Rheumatoid aortitis Is this a current diagnosis for this admission?: Yes - Notes Notes: Patient claims to be somewhat improved from admission. Still very weak. Continue with digoxin. Have decreased Lasix dose. Placed patient on Lasix 20 mg p.o. daily. Added spironolactone and hydralazine nitrate combination at low- dose initially, will go up gradually. Continue with other home regimen which seems quite satisfactory. Patient medications were reviewed. 2D echo results show severely depressed LVEF. This tends to portend a poor pr ognosis. At this point option is just optimizing medical management. Patient does not have a or any children. He was asked to appoint a surrogate decision maker.. - Time Time with patient: Greater than 35 minutes - More than 50% of the time spent coordinating care, discussing management plans with involved caregivers. Management plans discussed with involved personnels. Medical decision making was of moderate to high complexity, patient's has multiple comorbidities. Medications reviewed and adjusted accordingly: Yes - Multiple medication changes performed.
[2019-06-24] MEDS: DIGOXIN 0.125 MG TABLET PO SCH (10:13)
[2019-06-24] MEDS: APIXABAN 5 MG TABLET PO SCH ×2 (10:14→21:04)
[2019-06-24] MEDS: SPIRONOLACTONE 25 MG TABLET PO SCH (10:14)
[2019-06-24] MEDS: SOTALOL HCL 80 MG TABLET PO SCH ×2 (11:30→17:37)
[2019-06-24] MEDS: SACUBITRIL/VALSARTAN 49 MG/51 MG TABLET PO SCH ×2 (11:30→17:37)
[2019-06-24] MEDS: FUROSEMIDE 20 MG TABLET PO SCH (11:30)
[2019-06-24] MEDS: FOLIC ACID 1 MG TABLET PO SCH (11:30)
[2019-06-24] MEDS: ISOSORB DINIT/HYDRALAZINE HCL 20-37.5 MG TABLET PO SCH ×2 (14:28→21:04)
--- NOTE | 2019-06-24 20:25 | PDOC PROGRESS REPORT ---
Subjective Progress Note for:: 06/24/19 Subjective:: Patient doing much better. He looks much better. Pt is denying any chest arm or neck discomfort. Patient denying any PND, orthopnea. Patient denied any sustained palpitations, dizziness, syncope, near syncope. Patient denying any fever chills. Patient denying any other significant discomfort. Patient is maintaining A sensed V paced rhythm. Pedal edema has resolved. Review of systems: Rest review of systems negative. Medications: Medications have been reviewed. Reason For Visit: CHF Physical Exam Vital Signs: Temp Pulse Resp BP Pulse Ox 97.8 F 63 17 101/73 100 06/24/19 14:41 06/24/19 14:41 06/24/19 14:41 06/24/19 14:41 06/24/19 14:41 Intake & Output 06/23/19 06/24/19 06/25/19 06:59 06:59 06:59 Intake Total 2626 730 968 Output Total 1400 950 200 Balance 1226 -220 768 Weight 80.1 kg 78.7 kg Exam: GENERAL: well-nourished and in no acute distress. Alert and oriented x3 HEAD: Atraumatic, normocephalic. EYES: COLT, sclera anicteric, conjunctiva are normal. ENT: Moist mucous membranes. No oral ulcerations or bleeding gums noted. No obvious ear, nose or throat abnormalities noted. NECK: supple without lymphadenopathy. Trachea is central. No cervical or axillary lymphadenopathy noted. Carotids are 2+, JVD WNL LUNGS: Breath sounds clear bilaterally. No wheezes rales or rhonchi noted. No significant dullness noted on percussion. CHEST: Palpation of the chest wall shows no significant chest wall tenderness. Right-sided defibrillator noted. 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 ABDOMEN: Soft, no significant tenderness appreciated, normoactive bowel sounds. No guarding, no rebound. No rigidity noted . No masses appreciated. EXTREMITIES: Pedal pulses are 1-2+, no calf tenderness noted. No clubbing or c yanosis. negative pedal edema noted NEUROLOGICAL: Focused neurological exam showed no significant neurologic deficit. Normal speech, no focal weakness appreciated. PSYCH: Normal mood, normal affect. Judgment and insight within normal limits. SKIN: No significant ecchymosis, skin is noted to be warm. MUSCULOSKELETAL EXAM: No significant acute joint swelling noted. Results Laboratory Results: 06/23/19 05:14 06/24/19 05:54 06/23/19 06/24/19 22:38 05:54 Sodium 135.6 L Potassium 4.0 Chloride 103 Carbon Dioxide 26 Anion Gap 7 BUN 26 H Creatinine 0.80 Est GFR ( Amer) > 60 Glucose 81 Calcium 7.9 L C-Reactive Protein 54.1 H 06/20/19 06/20/19 06/20/19 15:00 15:00 16:32 Creatine Kinase Cancelled 41 L CK-MB (CK-2) Cancelled Troponin I Cancelled NT-Pro-B Natriuret Pep 06/20/19 06/20/19 06/21/19 16:32 16:32 06:09 Creatine Kinase 51 L CK-MB (CK-2) 0.77 Troponin I 0.032 NT-Pro-B Natriuret Pep 10549 H 06/21/19 06/21/19 06/21/19 06:09 11:23 11:23 Creatine Kinase 60 CK-MB (CK-2) 1.25 1.47 Troponin I 0.032 0.034 NT-Pro-B Natriuret Pep 06/21/19 06/21/19 06/21/19 16:39 16:39 23:21 Creatine Kinase 59 61 CK-MB (CK-2) 1.34 Troponin I 0.029 NT-Pro-B Natriuret Pep 06/21/19 23:21 Creatine Kinase CK-MB (CK-2) 1.34 Troponin I 0.028 NT-Pro-B Natriuret Pep EKG Comments: Shows a sensed V paced rhythm. Impressions: Lung Scan-VQ NM 06/21/19 00:00 IMPRESSION: NORMAL PERFUSION LUNG SCAN. NEGATIVE FOR PULMONARY EMBOLI. Chest X-Ray 06/22/19 00:00 IMPRESSION: IMPROVED APPEARANCE. MILD CARDIOMEGALY. Assessment & Plan - Diagnosis (1) Acute on chronic systolic heart failure Is this a current diagnosis for this admission?: Yes (2) Elevated lactic acid level Is this a current diagnosis for this admission?: Yes (3) Cardiomyopathy Qualifiers: Cardiomyopathy type: unspecified Qualified Code(s): I42.9 - Cardiomyopathy, unspecified Is this a current diagnosis for this admission?: Yes (4) Rheumatoid aortitis Is this a current diagnosis for this admission?: Yes - Notes Notes: Patient has severely depressed LVEF. Medical management of cardiomyopathy, CHF and severely depressed LVEF being optimized. Patient currently on a good regimen. Had added hydralazine nitrate combination. May consider adding carvedilol on top of sotalol if needed. Continue with ARNI therapy. Patient was also placed on spironolactone. We will try not to hold medications unless patient has symptomatic hypotension. - Time Time with patient: 15-25 minutes Medications reviewed and adjusted accordingly: Yes
--- NOTE | 2019-06-24 20:34 | ADVANCED CARE ---
- Diagnosis (1) Acute on chronic combined systolic (congestive) and diastolic (congestive) heart failure Diagnosis Current: Yes (2) Rheumatoid arthritis Diagnosis Current: Yes (3) Persistent atrial fibrillation Diagnosis Current: Yes Resuscitation Status: Do Not Resuscitate Discussion: Discussed CODE STATUS with patient, he wants to be a DNR status, no chest compression, no intubation
--- NOTE | 2019-06-24 20:48 | PDOC PROGRESS REPORT ---
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 in a very long time, he is not very compliant with office visit recently.We discussed CODE STATUS today, he is presently optimized on medical therapy for CHF he is on sotalol for atrial fibrillation, this is not evidence-based beta-julia low dose Evidence-based beta-julia will be added to the regimen, Reason For Visit: CHF Physical Exam Vital Signs: Temp Pulse Resp BP Pulse Ox 97.8 F 63 17 101/73 100 06/24/19 14:41 06/24/19 14:41 06/24/19 14:41 06/24/19 14:41 06/24/19 14:41 Intake & Output 06/23/19 06/24/19 06/25/19 06:59 06:59 06:59 Intake Total 2626 730 968 Output Total 1400 950 200 Balance 1226 -220 768 Weight 80.1 kg 78.7 kg General appearance: PRESENT: no acute distress Eye exam: PRESENT: PERRLA Respiratory exam: PRESENT: clear to auscultation john Cardiovascular exam: PRESENT: +S1, +S2 GI/Abdominal exam: PRESENT: soft Musculoskeletal exam: PRESENT: deformity Neurological exam: PRESENT: alert, CN II-XII grossly intact Results Laboratory Results: 06/23/19 05:14 06/24/19 05:54 06/23/19 06/24/19 22:38 05:54 Sodium 135.6 L Potassium 4.0 Chloride 103 Carbon Dioxide 26 Anion Gap 7 BUN 26 H Creatinine 0.80 Est GFR ( Amer) > 60 Glucose 81 Calcium 7.9 L C-Reactive Protein 54.1 H 06/20/19 06/20/19 06/20/19 15:00 15:00 16:32 Creatine Kinase Cancelled 41 L CK-MB (CK-2) Cancelled Troponin I Cancelled NT-Pro-B Natriuret Pep 06/20/19 06/20/19 06/21/19 16:32 16:32 06:09 Creatine Kinase 51 L CK-MB (CK-2) 0.77 Troponin I 0.032 NT-Pro-B Natriuret Pep 40691 H 06/21/19 06/21/19 06/21/19 06:09 11:23 11:23 Creatine Kinase 60 CK-MB (CK-2) 1.25 1.47 Troponin I 0.032 0.034 NT-Pro-B Natriuret Pep 06/21/19 06/21/19 06/21/19 16:39 16:39 23:21 Creatine Kinase 59 61 CK-MB (CK-2) 1.34 Troponin I 0.029 NT-Pro-B Natriuret Pep 06/21/19 23:21 Creatine Kinase CK-MB (CK-2) 1.34 Troponin I 0.028 NT-Pro-B Natriuret Pep Impressions: Lung Scan-VQ NM 06/21/19 00:00 IMPRESSION: NORMAL PERFUSION LUNG SCAN. NEGATIVE FOR PULMONARY EMBOLI. Chest X-Ray 06/22/19 00:00 IMPRESSION: IMPROVED APPEARANCE. MILD CARDIOMEGALY. Assessment & Plan - Diagnosis (1) Acute on chronic combined systolic (congestive) and diastolic (congestive) heart failure Is this a current diagnosis for this admission?: Yes Plan: Start low-dose beta-julia carvedilol 3.125 mg p.o. twice daily (2) Rheumatoid arthritis Qualifiers: Rheumatoid arthritis location: hand Rheumatoid factor presence: with rheumatoid factor Laterality: bilateral Qualified Code(s): M05.741 - Rheumatoid arthritis with rheumatoid factor of right hand without organ or systems involvement; M05.742 - Rheumatoid arthritis with rheumatoid factor of left hand without organ or systems involvement Is this a current diagnosis for this admission?: Yes (3) Persistent atrial fibrillation Is this a current diagnosis for this admission?: Yes - Time Time Spent with patient: 15-24 minutes Level of Care: TELE
[2019-06-24] MEDS: CARVEDILOL 3.125 MG TABLET PO SCH (21:04)
[2019-06-25] MEDS: ISOSORB DINIT/HYDRALAZINE HCL 20-37.5 MG TABLET PO SCH ×3 (05:30→21:48)
[2019-06-25] MEDS: PANTOPRAZOLE SODIUM 40 MG TABLET.DR PO SCH (05:30)
[2019-06-25] MEDS: APIXABAN 5 MG TABLET PO SCH ×2 (09:59→21:49)
[2019-06-25] MEDS: FUROSEMIDE 20 MG TABLET PO SCH (09:59)
[2019-06-25] MEDS: FOLIC ACID 1 MG TABLET PO SCH (09:59)
[2019-06-25] MEDS: SPIRONOLACTONE 25 MG TABLET PO SCH (10:00)
[2019-06-25] MEDS: CARVEDILOL 3.125 MG TABLET PO SCH ×2 (10:00→21:50)
[2019-06-25] MEDS: SOTALOL HCL 80 MG TABLET PO SCH ×2 (10:00→17:17)
[2019-06-25] MEDS: SACUBITRIL/VALSARTAN 49 MG/51 MG TABLET PO SCH ×2 (10:01→17:18)
[2019-06-25] MEDS: DIGOXIN 0.125 MG TABLET PO SCH (10:01)
[2019-06-25 10:04] LABS: ANION GAP 5 (5-19); BLOOD UREA NITROGEN 21 mg/dL (7-20); CARBON DIOXIDE 26 mmol/L (22-30); CHLORIDE 103 mmol/L (98-107); GLUCOSE 96 mg/dL (75-110); POTASSIUM 4.1 mmol/L (3.6-5.0)
--- NOTE | 2019-06-25 19:48 | PDOC PROGRESS REPORT ---
Subjective Progress Note for:: 06/25/19 Subjective:: Patient seen by the bedside, he will need physical therapy, he is very debilitated, this will be done in the facility likely alf home Reason For Visit: CHF Physical Exam Vital Signs: Temp Pulse Resp BP Pulse Ox 97.6 F 67 19 97/64 L 98 06/25/19 15:55 06/25/19 15:55 06/25/19 15:55 06/25/19 15:55 06/25/19 15:55 Intake & Output 06/24/19 06/25/19 06/26/19 06:59 06:59 06:59 Intake Total 730 1288 1140 Output Total 950 1150 1400 Balance -220 138 -260 Weight 78.7 kg 77.4 kg General appearance: PRESENT: no acute distress Eye exam: PRESENT: PERRLA Respiratory exam: PRESENT: clear to auscultation john Cardiovascular exam: PRESENT: +S1, +S2 Results Laboratory Results: 06/23/19 05:14 06/25/19 09:00 06/25/19 06/25/19 06:50 09:00 Sodium Cancelled 134.0 L Potassium Cancelled 4.1 Chloride Cancelled 103 Carbon Dioxide Cancelled 26 Anion Gap Cancelled 5 BUN Cancelled 21 H Creatinine Cancelled 0.74 Est GFR ( Amer) Cancelled > 60 Est GFR (Non-Af Amer) Cancelled Glucose Cancelled 96 Calcium Cancelled 8.0 L 06/20/19 17:33 Blood Blood Culture - Final NO GROWTH IN 5 DAYS 06/20/19 15:57 Blood Blood Culture - Final NO GROWTH IN 5 DAYS 06/20/19 06/20/19 06/20/19 15:00 15:00 16:32 Creatine Kinase Cancelled 41 L CK-MB (CK-2) Cancelled Troponin I Cancelled NT-Pro-B Natriuret Pep 06/20/19 06/20/19 06/21/19 16:32 16:32 06:09 Creatine Kinase 51 L CK-MB (CK-2) 0.77 Troponin I 0.032 NT-Pro-B Natriuret Pep 84250 H 06/21/19 06/21/19 06/21/19 06:09 11:23 11:23 Creatine Kinase 60 CK-MB (CK-2) 1.25 1.47 Troponin I 0.032 0.034 NT-Pro-B Natriuret Pep 06/21/19 06/21/19 06/21/19 16:39 16:39 23:21 Creatine Kinase 59 61 CK-MB (CK-2) 1.34 Troponin I 0.029 NT-Pro-B Natriuret Pep 06/21/19 23:21 Creatine Kinase CK-MB (CK-2) 1.34 Troponin I 0.028 NT-Pro-B Natriuret Pep Impressions: Lung Scan-VQ NM 06/21/19 00:00 IMPRESSION: NORMAL PERFUSION LUNG SCAN. NEGATIVE FOR PULMONARY EMBOLI. Chest X-Ray 06/22/19 00:00 IMPRESSION: IMPROVED APPEARANCE. MILD CARDIOMEGALY. Assessment & Plan - Diagnosis (1) Acute on chronic combined systolic (congestive) and diastolic (congestive) heart failure Is this a current diagnosis for this admission?: Yes (2) Rheumatoid arthritis Qualifiers: Rheumatoid arthritis location: hand Rheumatoid factor presence: with rheumatoid factor Laterality: bilateral Qualified Code(s): M05.741 - Rheumatoid arthritis with rheumatoid factor of right hand without organ or systems involvement; M05.742 - Rheumatoid arthritis with rheumatoid factor of left hand without organ or systems involvement Is this a current diagnosis for this admission?: Yes (3) Persistent atrial fibrillation Is this a current diagnosis for this admission?: Yes - Time Time Spent with patient: 25-34 minutes
[2019-06-25] MEDS: ACETAMINOPHEN 325 MG TABLET PO PRN (23:45)
[2019-06-26] MEDS: PANTOPRAZOLE SODIUM 40 MG TABLET.DR PO SCH (05:35)
[2019-06-26] MEDS: ISOSORB DINIT/HYDRALAZINE HCL 20-37.5 MG TABLET PO SCH ×3 (05:35→21:56)
[2019-06-26] MEDS: FUROSEMIDE 20 MG TABLET PO SCH (09:18)
[2019-06-26] MEDS: CARVEDILOL 3.125 MG TABLET PO SCH ×2 (09:18→21:57)
[2019-06-26] MEDS: SOTALOL HCL 80 MG TABLET PO SCH ×2 (09:18→17:07)
[2019-06-26] MEDS: FOLIC ACID 1 MG TABLET PO SCH (09:19)
[2019-06-26] MEDS: SPIRONOLACTONE 25 MG TABLET PO SCH (09:19)
[2019-06-26] MEDS: SACUBITRIL/VALSARTAN 49 MG/51 MG TABLET PO SCH ×2 (09:19→17:07)
[2019-06-26] MEDS: DIGOXIN 0.125 MG TABLET PO SCH (09:19)
[2019-06-26] MEDS: APIXABAN 5 MG TABLET PO SCH ×2 (09:19→21:57)
--- NOTE | 2019-06-26 22:22 | PDOC PROGRESS REPORT ---
Subjective Progress Note for:: 06/26/19 Subjective:: Patient seen by the bedside, he had episode of nonsustained V. tach today, he has AICD in place, he may need interrogation of the AICD device Reason For Visit: CHF Physical Exam Vital Signs: Temp Pulse Resp BP Pulse Ox 97.9 F 76 16 113/75 100 06/26/19 20:00 06/26/19 20:00 06/26/19 20:00 06/26/19 20:00 06/26/19 20:00 Intake & Output 06/25/19 06/26/19 06/27/19 06:59 06:59 06:59 Intake Total 1288 1700 560 Output Total 1150 2000 1200 Balance 138 -300 -640 Weight 77.4 kg 77.3 kg General appearance: PRESENT: no acute distress Eye exam: PRESENT: PERRLA Respiratory exam: PRESENT: clear to auscultation john Cardiovascular exam: PRESENT: +S1, +S2 GI/Abdominal exam: PRESENT: soft Results Laboratory Results: 06/23/19 05:14 06/25/19 09:00 06/20/19 17:33 Blood Blood Culture - Final NO GROWTH IN 5 DAYS 06/20/19 06/20/19 06/20/19 15:00 15:00 16:32 Creatine Kinase Cancelled 41 L CK-MB (CK-2) Cancelled Troponin I Cancelled NT-Pro-B Natriuret Pep 06/20/19 06/20/19 06/21/19 16:32 16:32 06:09 Creatine Kinase 51 L CK-MB (CK-2) 0.77 Troponin I 0.032 NT-Pro-B Natriuret Pep 82793 H 06/21/19 06/21/19 06/21/19 06:09 11:23 11:23 Creatine Kinase 60 CK-MB (CK-2) 1.25 1.47 Troponin I 0.032 0.034 NT-Pro-B Natriuret Pep 06/21/19 06/21/19 06/21/19 16:39 16:39 23:21 Creatine Kinase 59 61 CK-MB (CK-2) 1.34 Troponin I 0.029 NT-Pro-B Natriuret Pep 06/21/19 23:21 Creatine Kinase CK-MB (CK-2) 1.34 Troponin I 0.028 NT-Pro-B Natriuret Pep Impressions: Lung Scan-VQ NM 06/21/19 00:00 IMPRESSION: NORMAL PERFUSION LUNG SCAN. NEGATIVE FOR PULMONARY EMBOLI. Chest X-Ray 06/22/19 00:00 IMPRESSION: IMPROVED APPEARANCE. MILD CARDIOMEGALY. Assessment & Plan - Diagnosis (1) Acute on chronic combined systolic (congestive) and diastolic (congestive) heart failure Is this a current diagnosis for this admission?: Yes (2) Rheumatoid arthritis Qualifiers: Rheumatoid arthritis location: hand Rheumatoid factor presence: with rheumatoid factor Laterality: bilateral Qualified Code(s): M05.741 - Rheumatoid arthritis with rheumatoid factor of right hand without organ or systems involvement; M05.742 - Rheumatoid arthritis with rheumatoid factor of left hand without organ or systems involvement Is this a current diagnosis for this admission?: Yes (3) Persistent atrial fibrillation Is this a current diagnosis for this admission?: Yes - Time Time Spent with patient: Less than 15 minutes
[2019-06-27] MEDS: PANTOPRAZOLE SODIUM 40 MG TABLET.DR PO SCH (06:25)
[2019-06-27] MEDS: ISOSORB DINIT/HYDRALAZINE HCL 20-37.5 MG TABLET PO SCH ×3 (06:25→22:44)
[2019-06-27] MEDS: ACETAMINOPHEN 325 MG TABLET PO PRN (06:25)
[2019-06-27] MEDS: APIXABAN 5 MG TABLET PO SCH ×2 (09:31→22:42)
[2019-06-27] MEDS: SPIRONOLACTONE 25 MG TABLET PO SCH (09:32)
[2019-06-27] MEDS: DIGOXIN 0.125 MG TABLET PO SCH (09:32)
[2019-06-27] MEDS: SOTALOL HCL 80 MG TABLET PO SCH ×2 (09:32→18:30)
[2019-06-27] MEDS: FUROSEMIDE 20 MG TABLET PO SCH (09:32)
[2019-06-27] MEDS: CARVEDILOL 3.125 MG TABLET PO SCH ×2 (09:32→22:42)
[2019-06-27] MEDS: SACUBITRIL/VALSARTAN 49 MG/51 MG TABLET PO SCH ×2 (09:32→18:30)
[2019-06-27] MEDS: FOLIC ACID 1 MG TABLET PO SCH (09:32)
--- NOTE | 2019-06-27 21:25 | PDOC TRANSFER SUMMARY ---
Impression - Admit/DC Date/PCP Admission Date/Primary Care Provider: 06/21/19 00:00 FUAD BLEVINS MD Discharge Date: 06/28/19 - Discharge Diagnosis (1) Acute on chronic combined systolic (congestive) and diastolic (congestive) heart failure Is this a current diagnosis for this admission?: Yes (2) Rheumatoid arthritis Is this a current diagnosis for this admission?: Yes (3) Persistent atrial fibrillation Is this a current diagnosis for this admission?: Yes - Additional Information Resuscitation Status: Do Not Resuscitate Referrals: FUAD BLEVINS MD [Primary Care Provider] - 07/08/19 11:00 am Home Medications: Folic Acid 1 mg PO DAILY 04/12/15 Sotalol HCl [Sotalol] 80 mg PO BID 04/12/15 Sacubitril/Valsartan [Entresto 49 mg/51 mg Tablet] 1 tab PO BID 06/21/19 Acetaminophen [Tylenol 325 mg Tablet] 650 mg PO Q4HP PRN tablet 06/27/19 Apixaban [Eliquis 5 mg Tablet] 5 mg PO Q12 tablet 06/27/19 Carvedilol [Coreg 3.125 mg Tablet] 3.125 mg PO Q12 tablet 06/27/19 Ipratropium/Albuterol Sulfate [Duoneb 3 ml Ampul] 3 ml NEB RTQ4HP PRN vial.neb 06/27/19 Isosorb Dinit/Hydralazine HCl [Bidil 20-37.5 mg Tablet] 0.5 tab PO Q8 tablet 06/27/19 Leflunomide [Arava 20 mg Tablet] 20 mg PO DAILY tablet 06/27/19 Spironolactone [Aldactone 25 mg Tablet] 25 mg PO DAILY tablet 06/27/19 History of Present Illiness History of Present Illness: STANLEY TOLEDO is a 69 year old male.Patient presented to the emergency room for evaluation of shortness of breath and generalized body weakness, he was admitted by Dr. Simpson he was found to be in congestive heart failure. Hospital Course Hospital Course: Patient is well-known to me, He has a history of chronic systolic and diastolic heart failure, rheumatoid arthritis, a 2D echo was done that demonstrated ejection fraction of 25%. Patient is well-known to me he has recently become poorly adherent to his medication and overall medical care. He has disabling rheumatoid arthritis he was supposed to be on disease modifying anti-rheumatoid agents, he has difficulty tolerating methotrexate, he was supposed to be on the anti-TNF biologic agent but he has not been taking any medication for his rheumatoid arthritis. Issues signs and symptoms of poorly controlled chronic inflammatory disease with extreme muscle wastage to form peripheral joints including the knees fingers of the and. His medication was modified for his CHF, he was also started on leflunomide for the RA, the anti-CCP was more than 250.The plan is to transfer patient to senior care for rehabilitation for kishan strengthening Physical Exam Vital Signs: Temp Pulse Resp BP Pulse Ox 98.1 F 70 16 116/73 99 06/27/19 19:25 06/27/19 19:25 06/27/19 19:25 06/27/19 19:25 06/27/19 19:25 Intake & Output 06/26/19 06/27/19 06/28/19 06:59 06:59 06:59 Intake Total 1700 1096 1020 Output Total 2000 1200 1120 Balance -300 -104 -100 Weight 77.3 kg 72.8 kg 72.8 kg General appearance: PRESENT: no acute distress Eye exam: PRESENT: PERRLA Respiratory exam: PRESENT: clear to auscultation john Cardiovascular exam: PRESENT: +S1, +S2 GI/Abdominal exam: PRESENT: soft Musculoskeletal exam: PRESENT: deformity Neurological exam: PRESENT: alert, CN II-XII grossly intact Results Laboratory Results: WBC 3.9 10^3/uL (4.0-10.5) L 06/23/19 05:14 RBC 4.57 10^6/uL (4.35-5.55) 06/23/19 05:14 Hgb 12.9 g/dL (13.5-17.0) L 06/23/19 05:14 Hct 39.2 % (37.9-51.0) 06/23/19 05:14 MCV 86 fl (80-97) 06/23/19 05:14 MCH 28.2 pg (27.0-33.4) 06/23/19 05:14 MCHC 32.9 g/dL (32.0-36.0) 06/23/19 05:14 RDW 23.2 % (11.5-14.0) H 06/23/19 05:14 Plt Count 85 10^3/uL (150-450) L 06/23/19 05:14 Lymph % (Auto) Not Reportable 06/23/19 05:14 Davie % (Auto) Not Reportable 06/23/19 05:14 Eos % (Auto) Not Reportable 06/23/19 05:14 Baso % (Auto) Not Reportable 06/23/19 05:14 Absolute Neuts (auto) Not Reportable 06/23/19 05:14 Absolute Lymphs (auto) Not Reportable 06/23/19 05:14 Absolute Monos (auto) Not Reportable 06/23/19 05:14 Absolute Eos (auto) Not Reportable 06/23/19 05:14 Absolute Basos (auto) Not Reportable 06/23/19 05:14 Total Counted 100 06/23/19 05:14 Seg Neutrophils % Not Reportable 06/23/19 05:14 Seg Neuts % (Manual) 54 % (42-78) 06/23/19 05:14 Band Neutrophils % 3 % (3-5) 06/23/19 05:14 Lymphocytes % (Manual) 35 % (13-45) 06/23/19 05:14 Monocytes % (Manual) 5 % (3-13) 06/23/19 05:14 Eosinophils % (Manual) 3 % (0-6) 06/23/19 05:14 Basophils % (Manual) 0 % (0-2) 06/23/19 05:14 Abs Neuts (Manual) 2.2 10^3/uL (1.7-8.2) 06/23/19 05:14 Abs Lymphs (Manual) 1.4 10^3/uL (0.5-4.7) 06/23/19 05:14 Abs Monocytes (Manual) 0.2 10^3/uL (0.1-1.4) 06/23/19 05:14 Absolute Eos (Manual) 0.1 10^3/uL (0.0-0.6) 06/23/19 05:14 Abs Basophils (Manual) 0.0 10^3/uL (0.0-0.2) 06/23/19 05:14 Nucleated RBCs 1 /100 WBC (0) 06/22/19 05:58 Toxic Granulation SLIGHT 06/22/19 05:58 Clumped Platelets PRESENT 06/22/19 05:58 Platelet Comment DECREASED 06/23/19 05:14 Polychromasia 1+ 06/23/19 05:14 Poikilocytosis 3+ 06/22/19 05:58 Anisocytosis 3+ 06/23/19 05:14 Tear Drop Cells 1+ 06/23/19 05:14 Ovalocytes 1+ 06/22/19 05:58 Wildwood Cells 1+ 06/23/19 05:14 Schistocytes 2+ 06/22/19 05:58 PT 16.9 SEC (11.4-15.4) H 06/20/19 15:32 INR 1.37 06/20/19 15:32 VBG pH 7.31 (7.30-7.42) 06/20/19 15:57 VBG pCO2 39.7 mmHg (35-63) 06/20/19 15:57 VBG HCO3 19.4 mmol/L (20-32) L 06/20/19 15:57 VBG Base Excess -6.5 mmol/L 06/20/19 15:57 Sodium 134.0 mmol/L (137-145) L 06/25/19 09:00 Potassium 4.1 mmol/L (3.6-5.0) 06/25/19 09:00 Chloride 103 mmol/L (98-107) 06/25/19 09:00 Carbon Dioxide 26 mmol/L (22-30) 06/25/19 09:00 Anion Gap 5 (5-19) 06/25/19 09:00 BUN 21 mg/dL (7-20) H 06/25/19 09:00 Creatinine 0.74 mg/dL (0.52-1.25) 06/25/19 09:00 Est GFR ( Amer) > 60 (>60) 06/25/19 09:00 Est GFR (Non-Af Amer) Cancelled 06/25/19 06:50 Est GFR (MDRD) Non-Af > 60 (>60) 06/25/19 09:00 Glucose 96 mg/dL (75-110) 06/25/19 09:00 Lactic Acid 2.5 mmol/L (0.7-2.1) H 06/20/19 23:05 Calcium 8.0 mg/dL (8.4-10.2) L 06/25/19 09:00 Total Bilirubin 1.3 mg/dL (0.2-1.3) 06/20/19 16:32 Direct Bilirubin 0.7 mg/dL (0.0-0.4) H 06/20/19 16:32 Neonat Total Bilirubin Not Reportable 06/20/19 16:32 Neonat Direct Bilirubin Not Reportable 06/20/19 16:32 Neonat Indirect Bili Not Reportable 06/20/19 16:32 AST 41 U/L (17-59) 06/20/19 16:32 ALT 21 U/L (<50) 06/20/19 16:32 Alkaline Phosphatase 277 U/L (38-126) H 06/20/19 16:32 Creatine Kinase 61 U/L (55-170) 06/21/19 23:21 CK-MB (CK-2) 1.34 ng/mL (<4.55) 06/21/19 23:21 Troponin I 0.028 ng/mL 06/21/19 23:21 C-Reactive Protein 54.1 mg/L (<10.0) H 06/23/19 22:38 NT-Pro-B Natriuret Pep 32037 pg/mL (<125) H 06/20/19 16:32 Total Protein 6.5 g/dL (6.3-8.2) 06/20/19 16:32 Albumin 2.6 g/dL (3.5-5.0) L 06/20/19 16:32 EGFR Cancelled 06/25/19 06:50 Urine Color YELLOW 06/21/19 17:37 Urine Appearance CLEAR 06/21/19 17:37 Urine pH 5.0 (5.0-9.0) 06/21/19 17:37 Ur Specific Morgan 1.008 06/21/19 17:37 Urine Protein NEGATIVE mg/dL (NEGATIVE) 06/21/19 17:37 Urine Glucose (UA) NEGATIVE mg/dL (NEGATIVE) 06/21/19 17:37 Urine Ketones NEGATIVE mg/dL (NEGATIVE) 06/21/19 17:37 Urine Blood NEGATIVE (NEGATIVE) 06/21/19 17:37 Urine Nitrite NEGATIVE (NEGATIVE) 06/21/19 17:37 Urine Bilirubin NEGATIVE (NEGATIVE) 06/21/19 17:37 Urine Urobilinogen NEGATIVE mg/dL (<2.0) 06/21/19 17:37 Ur Leukocyte Esterase NEGATIVE (NEGATIVE) 06/21/19 17:37 Urine WBC (Auto) 2 /HPF 06/21/19 17:37 Urine RBC (Auto) 0 /HPF 06/21/19 17:37 U Hyaline Cast (Auto) 9 /LPF 06/21/19 17:37 Squamous Epi Cells Auto 1 /HPF 06/21/19 17:37 Urine Mucus (Auto) RARE /LPF 06/21/19 17:37 Urine Ascorbic Acid NEGATIVE (NEGATIVE) 06/21/19 17:37 Digoxin 1.21 ng/mL (0.8-2.0) 06/26/19 18:29 Urine Opiates Screen NEGATIVE 06/21/19 17:37 Urine Methadone Screen NEGATIVE 06/21/19 17:37 Ur Barbiturates Screen NEGATIVE 06/21/19 17:37 Ur Phencyclidine Scrn NEGATIVE 06/21/19 17:37 Ur Amphetamines Screen NEGATIVE 06/21/19 17:37 U Benzodiazepines Scrn NEGATIVE 06/21/19 17:37 Urine Cocaine Screen NEGATIVE 06/21/19 17:37 U Marijuana (THC) Screen NEGATIVE 06/21/19 17:37 Rheumatoid Factor NEGATIVE (NEGATIVE) 06/23/19 22:38 CCP IgG/IgA Ab >250 units (0-19) H 06/23/19 22:38 06/20/19 06/20/19 06/20/19 15:00 16:32 16:32 CK-MB (CK-2) Cancelled 0.77 Troponin I Cancelled 0.032 NT-Pro-B Natriuret Pep 27554 H 06/21/19 06/21/19 06/21/19 06:09 11:23 16:39 CK-MB (CK-2) 1.25 1.47 1.34 Troponin I 0.032 0.034 0.029 NT-Pro-B Natriuret Pep 06/21/19 23:21 CK-MB (CK-2) 1.34 Troponin I 0.028 NT-Pro-B Natriuret Pep Impressions: Chest X-Ray 06/20/19 00:00 IMPRESSION: Cardiomegaly and trace bilateral pleural effusions without evidence pulmonary edema. Lung Scan-VQ NM 06/21/19 00:00 IMPRESSION: NORMAL PERFUSION LUNG SCAN. NEGATIVE FOR PULMONARY EMBOLI. Chest X-Ray 06/22/19 00:00 IMPRESSION: IMPROVED APPEARANCE. MILD CARDIOMEGALY. Stroke Is this a Stroke Patient?: No Acute Heart Failure - Is this a Heart Failure Patient?: No
[2019-06-27] MEDS: LEFLUNOMIDE 20 MG TABLET PO SCH (22:45)
[2019-06-28] MEDS: ISOSORB DINIT/HYDRALAZINE HCL 20-37.5 MG TABLET PO SCH ×2 (05:27→13:41)
[2019-06-28] MEDS: PANTOPRAZOLE SODIUM 40 MG TABLET.DR PO SCH (05:28)
[2019-06-28] MEDS: SPIRONOLACTONE 25 MG TABLET PO SCH (09:31)
[2019-06-28] MEDS: DIGOXIN 0.125 MG TABLET PO SCH (09:31)
[2019-06-28] MEDS: APIXABAN 5 MG TABLET PO SCH (09:31)
[2019-06-28] MEDS: FUROSEMIDE 20 MG TABLET PO SCH (09:31)
[2019-06-28] MEDS: SOTALOL HCL 80 MG TABLET PO SCH (09:32)
[2019-06-28] MEDS: FOLIC ACID 1 MG TABLET PO SCH (09:32)
[2019-06-28] MEDS: SACUBITRIL/VALSARTAN 49 MG/51 MG TABLET PO SCH (09:32)
[2019-06-28] MEDS: CARVEDILOL 3.125 MG TABLET PO SCH (09:32)
[2019-06-28] MEDS: LEFLUNOMIDE 20 MG TABLET PO SCH (09:32)
[2019-06-28 12:54] VITALS: BP 118/71
== END 2019-06-28 14:10 | DRG 292 ==
LOC: ER 15:25 → EH 06-21 → 4S 06-21 02:40
PROVIDERS: ADMIT Internal Medicine; ATTEND Internal Medicine
DX: I11.0 Hypertensive heart disease with heart failure (principal); I48.19 Other persistent atrial fibrillation; Z79.01 Long term (current) use of anticoagulants; I50.43 Acute on chronic combined systolic (congestive) and diastolic (congestive) heart failure; M06.9 Rheumatoid arthritis, unspecified; I25.5 Ischemic cardiomyopathy; Z66 Do not resuscitate; I25.10 Atherosclerotic heart disease of native coronary artery without angina pectoris; Z91.14 Patient's other noncompliance with medication regimen; Z95.810 Presence of automatic (implantable) cardiac defibrillator; Z79.82 Long term (current) use of aspirin
CPT/HCPCS: 36415; 71045; 71046; 78582; 80048; 80053; 80162; 80307; 81001; 82550; 82553; 82803; 83605; 83880; 84484; 85025; 85610; 86140; 86200; 86430; 86431; 87040; 87086; 90686; 93005; 93010; 93306; 99285; A9540; A9567; J0696; J1940; J3490; Q9969